=== PATIENT | female | born 1990 | race Caucasian/White ===

== ENCOUNTER → 2016-09-13 | Outpatient (CLI) | payer OTHER ==
--- NOTE | 2016-09-13 13:22 | US ---
EXAMINATION TYPE: US OB <= 14 wk fetus DATE OF EXAM: 09/13/2016 11:33 AM COMPARISON: 08/11/2016 CLINICAL HISTORY: 26-year-old female confirm dates, 3, para 2 Beta HcG (if available): Not available at time of exam EXAM PERFORMED: Transabdominal (TA) FINDINGS: EXAM MEASUREMENTS: GESTATIONAL AGE / DATING Physician Established: Not established yet Dates by LMP: Patient unsure Dates by First Scan: No IUP seen Dates by Current Scan: (10 weeks/1 days) EDC: 04/10/2017 MATERNAL ANATOMY Uterus: 10.5 x 6.1 x 7.6cm Right Ovary: 3.1 x 1.8 x 1.7cm Left Ovary: 1.8 x 1.7 x 2.0cm Post CDS / Adnexa: Within normal limits Presence of free fluid: no Presence of corpus luteal cyst: not seen at this time Presence of subchorionic bleed: no GESTATION / SURVEY CRL: 3.3cm (10 weeks/1 days) Yolk Sac (normal less than 6mm): 4.5mm Heart Rate: 162 bpm Rhythm: Normal IUP: Viable IUP Nuchal Translucency 10-14wks (normal less than 3mm): 2.0mm IMPRESSION: 1. Single live intrauterine with gestational age of 10 weeks 1 day by crown-rump length. 2. Complete survey recommended at 18-20 weeks.
== END | disposition home or self-care (01) ==
LOC: RADUSWWP 11:08
PROVIDERS: ATTEND Obstetrics & Gynecology
DX: Z36 Encounter for antenatal screening of mother (principal); Z3A.10 10 weeks gestation of pregnancy
CPT/HCPCS: 76801; 76813

== ENCOUNTER → 2016-09-26 | Outpatient (CLI) | payer OTHER ==
[2016-09-26 15:23] LABS: Glucose 85 mg/dL (74-99); Non-African American GFR(MDRD) >60 (>60 ml/min/1.73 sqM)
[2016-09-26 15:26] LABS: CH 31.7; CHCM 33.7; HCT 36.5 % (34.0-46.0); HDW 2.38; HGB 12.4 gm/dL (11.4-16.0); MCHC 33.9 g/dL (31.0-37.0); MCV 94.5 fL (80.0-100.0); Mean Platelet Volume 10.1; RBC 3.87 m/uL (3.80-5.40); RDW 12.6 % (11.5-15.5); WBC 8.5 k/uL (3.8-10.6)
[2016-09-26 15:54] LABS: Hepatitis B Surface Ag Index 0.05
[2016-09-27 04:41] LABS: Toxoplasma Antibody (IgG) <3.0 IU/mL (<7.2)
[2016-09-27 07:22] LABS: HIV-1/HIV-2 Ab Screen NONREAC (NON REAC)
== END | disposition home or self-care (01) ==
LOC: LABWHC1 14:58
PROVIDERS: ATTEND Obstetrics & Gynecology
DX: Z34.81 Encounter for supervision of other normal pregnancy, first trimester (principal); Z3A.00 Weeks of gestation of pregnancy not specified
CPT/HCPCS: 36415; 82565; 82947; 85027; 86762; 86777; 86778; 86780; 86850; 86900; 86901; 87340; 87389

== ENCOUNTER 2016-10-31 17:21 | Emergency (ER) | payer OTHER ==
[2016-10-31 18:11] VITALS: RESP 18
--- NOTE | 2016-10-31 19:05 | ED ---
General Adult HPI - General Chief complaint: Abdominal Pain Stated complaint: , cramping IHS Time Seen by Provider: 10/31/16 18:40 Source: patient, RN notes reviewed Mode of arrival: ambulatory Limitations: no limitations - History of Present Illness Initial comments: This is a 26 her old female who presents with intermittent abdominal pain after lifting a patient yesterday at work. 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 Patient states the pain has gotten worse since yesterday and is now to the epigastric area. Patient states nothing makes pain worse or better. Patient states she has some mild cramping mostly in her back. Patient denies any vaginal bleeding or increased vaginal discharge. Patient denies any fever/ chills, dysuria, hematuria or frequency of urination. Patient states she is 16 weeks and she is a . Patient denies any recent fever, chills, shortness breath, chest pain, nausea/vomiting/diarrhea, numbness, tingling, hematuria, headache, or visual changes, or any other complaints. - Related Data Home Medications Medication Instructions Recorded Confirmed Pnv with Ca,No.72/Iron/FA 1 tab PO DAILY 10/31/16 10/31/16 [ Plus Tablet] Allergies Allergy/AdvReac Type Severity Reaction Status Date / Time No Known Allergies Allergy Verified 10/31/16 18:33 Review of Systems ROS Statement: Those systems with pertinent positive or pertinent negative responses have been documented in the HPI. ROS Other: All systems not noted in ROS Statement are negative. Past Medical History Past Medical History: No Reported History History of Any Multi-Drug Resistant Organisms: None Reported Additional Past Surgical History / Comment(s): Past Psychological History: No Psychological Hx Reported Smoking Status: Current every day smoker Past Alcohol Use History: None Reported Past Drug Use History: None Reported General Exam - General Exam Comments Initial Comments: General: The patient is awake and alert, in no distress, and does not appear acutely ill. Eye: Pupils are equal, round and reactive to light, extra-ocular movements are intact. No nystagmus. There is normal conjunctiva bilaterally. No signs of icterus. Ears: TMs pink and pearly with intact cone of light bilaterally. Normal external ear canals Nose: Nasal turbinates pink and moist Mouth and throat: There are moist mucous membranes and no oral lesions. Neck: The neck is supple, there is no tenderness or JVD. Cardiovascular: There is a regular rate and rhythm. No murmur, rub or gallop is appreciated. Respiratory: Lungs are clear to auscultation, respirations are non-labored, breath sounds are equal. No wheezes, stridor, rales, or rhonchi. Gastrointestinal: There is mild tenderness to palpation of the right lower quadrant. On bimanual exam or adnexal tenderness present, no right adnexal tenderness. No cervical motion tenderness. Patient has no epigastric tenderness. No pain with engagement of abdominal muscles. Soft, non-distended abdomen without masses or organomegaly noted. There is no rebound or guarding present. No CVA tenderness. Bowel sounds are unremarkable. Musculoskeletal: Normal ROM, no tenderness. Strength 5/5. Sensation intact. Radial Pulses equal bilaterally 2+. Neurological: A&O x 3. CN II-XII intact, There are no obvious motor or sensory deficits. Coordination appears grossly intact. Speech is normal. Skin: Skin is warm and dry and no rashes or lesions are noted. Psychiatric: Cooperative, appropriate mood & affect, normal judgment. Limitations: no limitations External exam: Present: normal external exam. Absent: erythema, swelling, lesions Speculum exam: Present: vaginal discharge (whitish discharge present, no odor). Absent: erythema, vaginal bleeding By manual exam: Present: adnexal tenderness (left adnexnal tenderness present). Absent: cervical motion tenderness Course Vital Signs 10/31/16 10/31/16 18:09 20:04 Temperature 97.5 F L 97.2 F L Pulse Rate 90 75 Respiratory 18 18 Rate Blood Pressure 121/58 101/59 O2 Sat by Pulse 100 98 Oximetry Medical Decision Making - Medical Decision Making This is a 26-year-old female who presents with abdominal pain after lifting a patient at work last night. Patient is 16 weeks . On physical exam There is mild tenderness to palpation of the right lower quadrant. On bimanual exam or adnexal tenderness present, no right adnexal tenderness. No cervical motion tenderness. Patient has no epigastric tenderness. No pain with engagement of abdominal muscles. Soft, non-distended abdomen without masses or organomegaly noted. There is no rebound or guarding present. No CVA tenderness. Bowel sounds are unremarkable. Patient had increased vaginal discharge and culture was obtained. 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 Patient is given Tylenol in the EC and reports improvement in symptoms. An ultrasound was done: Viable IUP. There is satisfactory growth compared to previous exam of 09/13/2016. I see no complicating process. Report read by Dr. Zamarripa. Discussed results with patient. Discussed Tylenol and heating pads for pain. Discussed avoidance of activities that causes increased pain. Discussed that is likely a muscular pain. Discussed that patient should follow-up with her CNC OPERATOR PROGRAMMER tomorrow. I discussed return parameters.Discussed that patient should follow up with PCP in one to 2 days or return to the EC for any worsening symptoms or for any further concerns. Patient was receptive to this plan and patient will be discharged home. I discussed this case with attending physician Dr. Richter who agrees the plan as stated above. - Lab Data Lab Results 10/31/16 Range/Units 19:00 Urine Color Light Yellow Urine Appearance Cloudy H (Clear) Urine pH 6.5 (5.0-8.0) Ur Specific [place] 1.010 (1.001-1.035) Urine Protein Negative (Negative) Urine Glucose (UA) Negative (Negative) Urine Ketones Negative (Negative) Urine Blood Negative (Negative) Urine Nitrate Negative (Negative) Urine Bilirubin Negative (Negative) Urine Urobilinogen <2.0 (<2.0) mg/dL Ur Leukocyte Esterase Negative (Negative) Urine RBC 1 (0-5) /hpf Ur Squamous Epith Cells 1 (0-4) /hpf Amorphous Sediment Rare H (None) /hpf Disposition Clinical Impression: Normal IUP (intrauterine ) on ultrasound, Muscle strain Disposition: HOME SELF-CARE Condition: Good Instructions: Muscle Strain (ED) Additional Instructions: Please use Tylenol for pain. May use heating pads to the area. Please follow- up with your CNC OPERATOR PROGRAMMER tomorrow. Please use medication as discussed. Please follow -up with family doctor in the next 2 days of symptoms have not improved. Please return to emergency room if the symptoms increase or worsen or for any other concerns. Referrals: Magda Osborne DO [Primary Care Provider] - 1-2 days Time of Disposition: 20:28
[2016-10-31] MEDS ORDERED: ACETAMINOPHEN TAB 500 MG TAB PO STA (19:15)
[2016-10-31 19:41] LABS: Amorphous Sediment,Urine Rare /hpf; Appearance,Urine Cloudy (Clear); Bilirubin,Urine Negative (Negative); Glucose,Urine (UA) Negative (Negative); Ketones,Urine Negative (Negative); Leukocyte Esterase,Urine Negative (Negative); Nitrite,Urine Negative (Negative); PH, Urine 6.5 (5.0-8.0); Particle Count 8159; Protein,Urine Negative (Negative); RBC,Urine 1 /hpf (0-5); Squamous Epithelial Cell,Urine 1 /hpf (0-4); UA Billing (MACRO vs. MICRO) MICRO; Urobilinogen,Urine <2.0 mg/dL (<2.0)
--- NOTE | 2016-10-31 20:03 | US ---
EXAMINATION TYPE: US OB >= 14 wk fetus DATE OF EXAM: 10/31/2016 7:52 PM COMPARISON: Prior in PACS CLINICAL HISTORY: Cramping TECHNIQUE: Transabdominal (TA) GESTATIONAL AGE / DATING Physician Established: (16 weeks/4 days) EDC: 04/13/2017 Dates by LMP: (16 weeks/4 days) EDC: 04/13/2017 Dates by First Scan: (16 weeks/4 days) EDC: 04/13/2017 Dates by Current Scan: (17 weeks/1 days) EDC: 04/09/2017 SURVEY IUP: Single PLACENTA: Anterior with probable posterior succenturiate lobe PREVIA: No Previa SERVANDO: 12.7 cm Normal CERVICAL LENGTH (transabdominal: norm > 3.0cm): 3.4 cm CERVICAL LENGTH (transvaginal: norm> 2.5cm): cm (Supplemental transvaginal imaging performed to verify cervical length.) BIOMETRY PRESENTATION: Variable LIE: Longitudinal BPD: 3.6 cm 17 weeks / 1 days HC: 13.8 cm 17 weeks / 2 days AC: 11.2 cm 17 weeks / 0 days FL: 2.3 cm 17 weeks / 0 days ESTIMATED WEIGHT IN GRAMS: 179.3 grams ESTIMATED WEIGHT IN LBS/OZS: 0 lbs. 6 oz. WEIGHT PERCENTAGE BASED ON ESTABLISHED DATES: 74.9% HC/AC: 1.24 Normal FL/AC: 20.8 Normal HEART RATE: 142 bpm RHYTHM: Normal MATERNAL WALL MEASUREMENT: cm from skin to anterior uterine wall (if exam limited due to body habitus ). TECHNOLOGIST IMPRESSION: Viable IUP, measurements congruent with dates IMPRESSION: There is satisfactory growth compared to previous exam of 09/13/2016. I see no complicating process.
[2016-10-31 20:06] VITALS: BP 101/59; PULSE 75; TEMP 97.2
== END 2016-10-31 20:50 | disposition home or self-care (01) ==
LOC: EC 17:21
DX: O26.892 Other specified pregnancy related conditions, second trimester (principal); O99.332 Smoking (tobacco) complicating pregnancy, second trimester; S39.011A Strain of muscle, fascia and tendon of abdomen, initial encounter; Z3A.16 16 weeks gestation of pregnancy; X50.0XXA Overexertion from strenuous movement or load, initial encounter; Y93.F2 Activity, caregiving, lifting; Y92.9 Unspecified place or not applicable; Y99.0 Civilian activity done for income or pay
CPT/HCPCS: 76805; 81001; 87070; 87086; 87205; 99284

== ENCOUNTER → 2016-11-08 | Outpatient (CLI) | payer OTHER | END | disposition home or self-care (01) | LOC: RADUSWWP 14:59 | PROVIDERS: ATTEND Obstetrics & Gynecology | DX: Z53.9 Procedure and treatment not carried out, unspecified reason (principal) ==

== ENCOUNTER → 2016-12-04 | Outpatient (CLI) | payer OTHER ==
--- NOTE | 2016-11-13 16:12 | US ---
EXAMINATION TYPE: US OB anatomy transabd DATE OF EXAM: 11/13/2016 2:46 PM COMPARISON: NONE HISTORY: 26-year-old female large for dates, survey. TECHNIQUE: Transabdominal scanning. FINDINGS: EXAM MEASUREMENTS: GESTATIONAL AGE / DATING Physician Established: (18 weeks/ 3 days) EDC: 04/13/17 Dates by LMP: unknown Dates by First Scan: (18 weeks/0 days) EDC: 04/10/17 Dates by Current Scan for: (18 weeks/4 days) EDC: 04/12/17 SURVEY IUP: Single PLACENTA: Anterior PREVIA: No previa SERVANDO: 12.8 cm CERVICAL LENGTH (transabdominal: norm > 3.0cm): 3.5 cm BIOMETRY PRESENTATION: Breech LIE: Transverse lie with head maternal R BPD: 4.1 cm 18 weeks / 4 days HC: 15.5 cm 18 weeks / 3 days AC: 13.8 cm 19 weeks / 2 days FL: 2.8 cm 18 weeks / 5 days ESTIMATED WEIGHT IN GRAMS: 264 grams ESTIMATED WEIGHT IN LBS/OZS: 0 lbs. 9 oz. WEIGHT PERCENTAGE BASED ON ESTABLISHED DATE: 75 % HC/AC: 1.1 FL/AC: 20.5 HEART RATE: 161 bpm RHYTHM: Normal ANATOMY SEEN (within normal limits): Lateral Vent (< 1 cm) 7.6 mm Cisterna Magna (< 1.1 cm) 4 mm Nuchal Fold (< 0.6 cm) 3.6 mm Cerebellum (varies with age) Choroid Plexus (bilateral) Midline Falx Cavus Septi Pellucidi Stomach Outflow tracts: LVOT Nose / Lips Diaphragm Kidneys (bilateral) Bladder Cord Insert Three Vessel Cord Arms (bilateral) Legs (bilateral) ANATOMY NOT SEEN or SUBOPTIMALLY VISUALIZED: due to position Four Chamber Heart Outflow tracts: RVOT Situs Longitudinal Spine Transverse Spine TECHNOLOGIST IMPRESSION: Anatomy as seen as above, patient scheduled for callback for spine. IMPRESSION: 1. Single live intrauterine with established gestational age of 18 weeks 3 days. Current ul trasound biometry is concordant (18 weeks 4 days) placing the child at the 75th percentile for weight . 2. A number structures on the survey were suboptimally visualized (four-chamber heart, RVOT, si tus, spine) and the patient is scheduled for a rescan for missed anatomy. The remaining structures ap pear normal.
--- NOTE | 2016-12-04 22:31 | US ---
EXAMINATION TYPE: US OB Call Back DATE OF EXAM: 12/04/2016 3:43 PM COMPARISON: EXAMINATION TYPE: US OB Call Back DATE OF EXAM: 12/04/2016 3:43 PM COMPARISON: NONE CLINICAL HISTORY: 26-year-old female [id number] LARGE FOR DATES 2ND TRIMESTER. Rescan of missed anatomy . TECHNIQUE: Transabdominal scanning. FINDINGS: GESTATIONAL AGE / DATING Dates by Initial Survey Scan: (18 weeks/ 4 days) EDC: 04/12/17 HEART RATE: 163 bpm RHYTHM: Normal ANATOMY SEEN (second anatomic survey look): Four Chamber Heart: Situs Longitudinal Spine: Transverse Spine: ANATOMY SUBOPTIMALLY VISUALIZED: Outflow tracts:? RVOT (limited assessment on the provided images. The machinist helper notes normal appear ance during real-time scanning). IMPRESSION: The RVOT remains suboptimally visualized on the provided images. However, the machinist helper notes a nor mal appearance during real-time scanning. The survey is otherwise complete and the remaining an atomy appears normal.
== END | disposition home or self-care (01) ==
LOC: RADUSWWP 11-13 13:39
PROVIDERS: ATTEND Obstetrics & Gynecology
DX: O36.62X0 Maternal care for excessive fetal growth, second trimester, not applicable or unspecified (principal); Z3A.18 18 weeks gestation of pregnancy
CPT/HCPCS: 76811

== ENCOUNTER → 2016-12-24 | Outpatient (CLI) | payer OTHER ==
[2016-12-24 15:04] LABS: CH 31.6; CHCM 33.1; HCT 36.2 % (34.0-46.0); HDW 2.37; HGB 12.1 gm/dL (11.4-16.0); MCH 32.2 pg (25.0-35.0); MCHC 33.5 g/dL (31.0-37.0); MCV 96.2 fL (80.0-100.0); Mean Platelet Volume 9.9; RBC 3.76 m/uL (3.80-5.40); WBC 13.8 k/uL (3.8-10.6)
== END | disposition home or self-care (01) ==
LOC: LABWHC1 13:44
PROVIDERS: ATTEND Obstetrics & Gynecology
DX: Z34.82 Encounter for supervision of other normal pregnancy, second trimester (principal); Z3A.00 Weeks of gestation of pregnancy not specified
CPT/HCPCS: 36415; 82950; 85027

== ENCOUNTER 2017-02-22 09:34 | Outpatient (CLI) | payer OTHER ==
[2017-02-22 10:18] VITALS: PULSE 105; RESP 18; TEMP 96.9
[2017-02-22 10:49] LABS: Amorphous Sediment,Urine Occasional /hpf; Appearance,Urine Cloudy (Clear); Bacteria,Urine Occasional /hpf; Bilirubin,Urine Negative (Negative); Calcium Oxalate Crystals,Urine Moderate /hpf; Glucose,Urine (UA) Negative (Negative); Ketones,Urine Negative (Negative); Leukocyte Esterase,Urine Large (Negative); Mucus,Urine Rare /hpf; Nitrite,Urine Negative (Negative); PH, Urine 6.5 (5.0-8.0); Particle Count 16458; Protein,Urine 1+ (Negative); Specific Gravity,Urine 1.018 (1.001-1.035); Squamous Epithelial Cell,Urine 24 /hpf (0-4); UA Billing (MACRO vs. MICRO) MICRO; Urobilinogen,Urine <2.0 mg/dL (<2.0); WBC,Urine 6 /hpf (0-5)
[2017-02-22 11:15] LABS: Basophils % (A) 0 %; CH 32.5; CHCM 34.6; Eosinophils # (A) 0.1 k/uL (0-0.7); Eosinophils % (A) 1 %; HCT 33.7 % (34.0-46.0); HDW 2.61; HGB 11.4 gm/dL (11.4-16.0); Large Platelets Flag Moderate; Luc # (Auto) 0.24; Luc % (Auto) 2; Lymphocytes # (A) 1.5 k/uL (1.0-4.8); Lymphocytes % (A) 11 %; MCH 31.8 pg (25.0-35.0); MCHC 33.7 g/dL (31.0-37.0); MCV 94.4 fL (80.0-100.0); Mean Platelet Volume 11.4; Monocytes # (A) 0.5 k/uL (0-1.0); Monocytes % (A) 4 %; Neutrophils # (A) 11.1 k/uL (1.3-7.7); Neutrophils % (A) 82 %; RBC 3.57 m/uL (3.80-5.40); RDW 13.2 % (11.5-15.5); WBC 13.5 k/uL (3.8-10.6); WBC (Perox) 13.35
[2017-02-22 11:26] LABS: ALT 26 U/L (9-52); AST 12 U/L (14-36); LDH 315 U/L (313-618); Non-African American GFR(MDRD) >60 (>60 ml/min/1.73 sqM); Uric Acid 4.3 mg/dL (3.7-7.4)
[2017-02-22 11:35] LABS: Large Platelets Present; Manual Review Performed; RBC Morphology Normal
[2017-02-22 13:05] VITALS: BP 106/60
== END 2017-02-22 12:15 | disposition home or self-care (01) ==
LOC: FBPOP 09:34
PROVIDERS: ATTEND Obstetrics & Gynecology
DX: O99.113 Other diseases of the blood and blood-forming organs and certain disorders involving the immune mechanism complicating pregnancy, third trimester (principal); D69.6 Thrombocytopenia, unspecified; R42 Dizziness and giddiness; R63.4 Abnormal weight loss; Z3A.32 32 weeks gestation of pregnancy
CPT/HCPCS: 59025; 82565; 83615; 84450; 84460; 84550; 85025; 81001; G0463; 99215

== ENCOUNTER 2017-03-01 12:08 | Outpatient (CLI) | payer OTHER ==
[2017-03-01 12:17] VITALS: BP 113/69; PULSE 106; RESP 18; TEMP 96.1
== END 2017-03-01 12:55 | disposition home or self-care (01) ==
LOC: FBPOP 12:08
PROVIDERS: ATTEND Obstetrics & Gynecology
DX: O47.9 False labor, unspecified (principal); Z3A.33 33 weeks gestation of pregnancy
CPT/HCPCS: 59025; 84112; G0463; 99213

== ENCOUNTER 2017-03-11 11:03 | Outpatient (CLI) | payer OTHER ==
[2017-03-11 12:52] VITALS: BP 122/70; PULSE 112; RESP 16; TEMP 96.9
--- NOTE | 2017-03-12 08:30 | P.MSEPDOC ---
Presenting Problems - Arrival Data Date of Arrival on Unit: 03/11/17 Time of Arrival on Unit: 11:00 Mode of Transport: Ambulatory - Complaint OB-Reason for Admission/Chief Complaint: Observation/Evaluation Comment: pt arrived c/o bright red bleeding yesterday and brownish discharge today when she wipes. denies any contractions or abd discomfort Medical History - Information : 4 Para: 2 Term: 2 : 0 Abortions: Spontaneous or Elective: 1 Number of Living Children: 2 - Gestational Age Expected Date of Delivery: 04/13/17 Gestational Age by CHIQUI (wks/days): 35 Weeks and 3 Days Review of Systems - Review of Systems Constitutional: No problems Breast: No problems ENT: No problems Cardiovascular: No problems Respiratory: No problems Gastrointestinal: No problems Genitourinary: No problems Musculoskeletal: No problems Neurological: No problems Skin: No problems Vital Signs - Temperature Temperature: 96.9 F Temperature Source: Temporal Artery Scan - Pulse Right Brachial Pulse Rate: 112 Pulse Assessment Method: Automatic Cuff - Respirations Respiratory Rate: 16 Oxygen Delivery Method: Room Air - Blood Pressure Right Arm Blood Pressure: 122/70 Blood Pressure Mean: 87 Blood Pressure Source: Automatic Cuff Medical Screen Scoring (Pre) - Cervical Exam Dilation: 0 cm = 0 Membranes: Intact - Uterine Contractions Frequency: N/A Duration: N/A Intensity: N/A - Maternal Vital Signs Maternal Temperature: N/A Maternal Blood Pressure: N/A Signs of Preeclampsia: N/A Maternal Respirations: N/A - Maternal Trauma Maternal Trauma: N/A - Assessment Baseline FHR: 130 Heart Rate - NICHD Category: Category I (Normal) = 0 NST: Reactive Position: N/A Station: N/A - Total Score Total Score (Pre): 0 - Level of Risk Level of Risk: Low (0-5) Physician Notification (Pre) - Physician Notified Physician Notified Date: 03/11/17 Physician Notified Time: 11:15 Physician/Practitioner Notifed:: DR SARKAR Spoke With: DR SARKAR New Order Received: Yes - Notification Comment Comment: MAY DISCHARGE TO HOME AND KEEP DOCTOR APPOINTMENT WITH DR BAR TOMORROW Disposition - Disposition OB Disposition: Discharge to home Discharge Date: 03/11/17 Discharge Time: 12:40 I agree with the RN Medical Screening Exam: Yes Risk & Benefit of care provided described in d/c instruction: Yes Diagnosis: 35 WEEKS GESTATION OF
== END 2017-03-11 12:40 | disposition home or self-care (01) ==
LOC: FBPOP 11:03
PROVIDERS: ATTEND Obstetrics & Gynecology
DX: Z34.93 Encounter for supervision of normal pregnancy, unspecified, third trimester (principal); Z3A.35 35 weeks gestation of pregnancy
CPT/HCPCS: 59025; G0463; 99213

== ENCOUNTER 2017-03-24 23:24 | Outpatient (CLI) | payer OTHER ==
[2017-03-25 00:58] VITALS: BP 117/73; PULSE 94; RESP 18; TEMP 96.8
--- NOTE | 2017-03-27 07:30 | P.MSEPDOC ---
Presenting Problems - Arrival Data Date of Arrival on Unit: 03/25/17 Time of Arrival on Unit: 23:24 Mode of Transport: Ambulatory - Complaint OB-Reason for Admission/Chief Complaint: Possible Onset of Labor Medical History - Information : 4 Para: 2 Term: 2 : 0 Abortions: Spontaneous or Elective: 1 Number of Living Children: 2 - Gestational Age Expected Date of Delivery: 04/13/17 Gestational Age by CHIQUI (wks/days): 37 Weeks and 4 Days - History Complications: Smoker Review of Systems - Review of Systems Constitutional: No problems Breast: No problems ENT: No problems Cardiovascular: No problems Respiratory: No problems Gastrointestinal: No problems Genitourinary: No problems Musculoskeletal: No problems Neurological: No problems Skin: No problems Vital Signs - Temperature Temperature: 96.8 F Temperature Source: Temporal Artery Scan - Pulse Right Brachial Pulse Rate: 94 Pulse Assessment Method: Automatic Cuff - Respirations Respiratory Rate: 18 Oxygen Delivery Method: Room Air - Blood Pressure Right Arm Blood Pressure: 117/73 Blood Pressure Mean: 87 Blood Pressure Source: Automatic Cuff Medical Screen Scoring (Pre) - Cervical Exam Dilation: 1-3 cm = 1 Effacement: More than 50% = 2 Membranes: Intact - Uterine Contractions Frequency: > or = 36 weeks =2 Duration: > 40 seconds = 2 - Maternal Vital Signs Maternal Temperature: N/A Maternal Blood Pressure: N/A Signs of Preeclampsia: N/A Maternal Respirations: N/A - Maternal Trauma Maternal Trauma: N/A - Assessment Baseline FHR: 135 Heart Rate - NICHD Category: Category I (Normal) = 0 NST: Reactive Position: N/A Station: N/A - Total Score Total Score (Pre): 7 - Level of Risk Level of Risk: Medium (6-9) Medical Screen Scoring (Post) - Cervical Exam Dilation: 1-3 cm = 1 Effacement: More than 50% = 2 Membranes: Intact - Uterine Contractions Frequency: > or = 36 weeks =2 Duration: > 40 seconds = 2 Intensity: N/A - Maternal Vital Signs Maternal Temperature: N/A Maternal Blood Pressure: N/A Signs of Preeclampsia: N/A Maternal Respirations: N/A - Maternal Trauma Maternal Trauma: N/A - Assessment Heart Rate: 135 Heart Rate - NICHD Category: Category I (Normal) = 0 NST: Reactive Position: N/A - Total Score Total Score (Post): 7 - Post Treatment Level of Risk Post Treatment Level of Risk: Medium (6-9) Physician Notification (Post) - Physician Notified Physician Notified Date: 03/25/17 Physician Notified Time: 01:00 Physician/Practitioner Notified:: Dr. Wilkins Spoke With: Dr. Wilkins New Order Received: Yes - Notification Comment Comment: may keep for another hour if pt desires and recheck cervical exam or discharge pt home and instruct to increase fluids and return if contractions worsen Disposition - Disposition OB Disposition: Triage, Discharge to home, Written follow up instructions reviewed Discharge Date: 03/25/17 Discharge Time: 01:00 I agree with the RN Medical Screening Exam: Yes Risk & Benefit of care provided described in d/c instruction: Yes Diagnosis: FALSE LABOR AT OR AFTER 37 COMPLETED WEEKS OF GESTATION
== END 2017-03-25 01:00 | disposition home or self-care (01) ==
LOC: FBPOP 23:24
PROVIDERS: ATTEND Obstetrics & Gynecology
DX: O47.1 False labor at or after 37 completed weeks of gestation (principal); Z3A.37 37 weeks gestation of pregnancy
CPT/HCPCS: 59025; G0463; 99213

== ENCOUNTER 2017-04-08 05:53 | Inpatient (IN) | payer OTHER ==
--- NOTE | 2017-04-07 14:31 | P.HPOB ---
History of Present Illness H&P Date: 04/07/17 Chief Complaint: Induction of labor This is a 27-year-old female 4 para 2 with an estimated date of confinement of 04/13/2017, estimated gestational age of 39-2/7 weeks, who presents to labor and delivery for induction of labor. She has been feeling irregular contractions. She denies any rupture of membranes. She has been feeling good movement. labs: HIV-nonreactive Toxoplasma-negative Random glucose-85 Hepatitis B surface antigen-negative Hemoglobin-12.4 Syphilis antibody-negative Rubella-immune Blood type-O+ Antibody screen-negative One hour Glucola-117 Group B streptococcus-positive Obstetrical history: . History of 1 miscarriage and 2 vaginal deliveries at term. Her first vaginal delivery was complicated by placental abruption. Gynecologic history: No history of sexual transmitted diseases. 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 Review of Systems Constitutional: Denies chills, Denies fever Ears, nose, mouth and throat: Denies headache, Denies sore throat Cardiovascular: Denies chest pain, Denies shortness of breath Respiratory: Denies cough Gastrointestinal: Reports abdominal pain (Irregular contractions) Genitourinary: Reports pelvic pain, Reports Musculoskeletal: Reports low back pain Neurological: Denies numbness, Denies weakness Past Medical History Past Medical History: No Reported History History of Any Multi-Drug Resistant Organisms: None Reported Additional Past Surgical History / Comment(s): Past Psychological History: No Psychological Hx Reported Smoking Status: Never smoker Past Alcohol Use History: None Reported Past Drug Use History: None Reported - Past Family History Mother Family Medical History: Diabetes Mellitus Medications and Allergies Home Medications Medication Instructions Recorded Confirmed Type Pnv,Calcium 72/Iron/Folic Acid 1 tab PO DAILY 10/31/16 03/24/17 History [ Plus Tablet] Allergies Allergy/AdvReac Type Severity Reaction Status Date / Time No Known Allergies Allergy Verified 03/24/17 23:36 Exam Osteopathic Statement: *. No significant issues noted on an osteopathic structural exam other than those noted in the History and Physical/Consult.
[2017-04-08] MEDS ORDERED: LIDOCAINE 1% (PF) 10 MG/ML (30 ML SDV) SQ PRN (06:08)
[2017-04-08] MEDS ORDERED: TERBUTALINE 1 MG/ML VIAL SQ PRN (06:08)
[2017-04-08] MEDS ORDERED: OXYTOCIN 20 UNITS/1000 ML NS 1,000 ML IV SCH ×2 (06:08→13:43)
[2017-04-08] MEDS ORDERED: OXYTOCIN 10 UNIT/ML 1 ML VIAL IM PRN (06:08)
[2017-04-08] MEDS ORDERED: CARBOPROST TROMETHAMINE 250 MCG/ML 1 ML AMP IM PRN (06:08)
[2017-04-08] MEDS ORDERED: AMPICILLIN 2,000 MG in SODIUM CHLORIDE 0.9% 100 ML IVPB STA (06:08)
[2017-04-08] MEDS ORDERED: METHYLERGONOVINE 0.2 MG/ML 1 ML AMP IM PRN (06:08)
[2017-04-08] MEDS ORDERED: LIDOCAINE 1% 20 ML VIAL (10MG/ML) FOR IV START INTRADERMA PRN (06:08)
[2017-04-08 06:17] VITALS: BMI 32.5
[2017-04-08] MEDS: LACTATED RINGERS 1,000 ML IV SCH ×2 (06:25→08:42)
[2017-04-08 06:37] LABS: Basophils % (A) 0 %; CH 32.7; CHCM 33.8; Eosinophils # (A) 0.1 k/uL (0-0.7); Eosinophils % (A) 1 %; HCT 36.7 % (34.0-46.0); HDW 2.75; HGB 12.1 gm/dL (11.4-16.0); Large Platelets Flag Marked; Luc # (Auto) 0.27; Luc % (Auto) 2; Lymphocytes # (A) 1.4 k/uL (1.0-4.8); Lymphocytes % (A) 10 %; MCH 32.1 pg (25.0-35.0); MCV 97.3 fL (80.0-100.0); Mean Platelet Volume 12.7; Monocytes # (A) 0.5 k/uL (0-1.0); Monocytes % (A) 4 %; Neutrophils # (A) 11.2 k/uL (1.3-7.7); Neutrophils % (A) 83 %; RBC 3.77 m/uL (3.80-5.40); RDW 14.1 % (11.5-15.5); WBC 13.4 k/uL (3.8-10.6); WBC (Perox) 14.74
[2017-04-08] MEDS ORDERED: SODIUM CHLORIDE 0.9% 100 ML BAG ONE (08:45)
[2017-04-08] MEDS ORDERED: fentaNYL (PF) 50 MCG/ML 5 ML AMP ONE (08:45)
[2017-04-08] MEDS ORDERED: BUPIVACAINE (PF) 0.25% 30 ML VIAL ONE (08:45)
[2017-04-08] MEDS ORDERED: BUPIVACAINE (PF) 0.25% 25 ML, fentaNYL (PF) 200 MCG in SODIUM CHLORIDE 0.9% 71 ML EPIDURAL ONE (09:09)
[2017-04-08] MEDS ORDERED: AMPICILLIN 1,000 MG in SODIUM CHLORIDE 0.9% 50 ML IVPB SCH (10:30)
--- NOTE | 2017-04-08 13:34 | P.PROBDLV ---
Vaginal Delivery Note - . Vaginal Delivery Note: The patient reached complete dilation after oxytocin induction of labor and artificial rupture of membranes with clear fluid noted. She did receive epidural anesthesia. Once she reached approximately 9-1/2 cm, she was having issues with nausea and vomiting. She was instructed to give one push during a contraction and the remainder the cervix easily went away. She pushed for a couple further pushes and infant's head came to a crown. Perineum was anesthetized with 1% lidocaine and then a midline episiotomy was cut. With one further push, the remainder the 's head delivered across the perineum followed by the anterior shoulder. Nuchal cord times one was doubly clamped and cut and reduced around the 's head. With one remaining push, the remainder the easily delivered and was placed on mother's abdomen. Infant was then taken to warmer for evaluation. A viable female infant was noted with scores of 8 at 1 minute and 9 at 5 minutes and weight of 7 pounds 3.9 ounces. Her placenta delivered shortly thereafter, intact, with a three-vessel cord. Uterus contracted well after oxytocin was given and uterine massage was carried out. Inspection of the perineum revealed a midline episiotomy with no further extension. This area was anesthetized with 1% lidocaine and then sutured with 3-0 and 2-0 Vicryl suture in the usual multi- layer fashion. Estimated blood loss is approximately 150 mL's. Both mother and infant are in stable condition.
[2017-04-08] MEDS ORDERED: LANOLIN CREAM 5 GM TUBE TOPICAL PRN (13:43)
[2017-04-08] MEDS ORDERED: BENZOCAINE/MENTHOL SPRAY 1 GM/SPRAY AEROSOL TOPICAL PRN (13:43)
[2017-04-08] MEDS ORDERED: HYDROCORTISONE 2.5% RECTAL CREAM 30 GM TUBE RECTAL PRN (13:43)
[2017-04-08] MEDS ORDERED: Acetaminophen-Codeine 300-30mg TAB PO PRN ×2 (13:43)
[2017-04-08] MEDS ORDERED: diphenhydrAMINE 50 MG/ML 1 ML VIAL IVP PRN ×2 (13:43)
[2017-04-08] MEDS ORDERED: diphenhydrAMINE 50 MG CAP PO PRN (13:43)
[2017-04-08] MEDS ORDERED: SIMETHICONE 80 MG CHEWABLE PO PRN (13:43)
[2017-04-08] MEDS ORDERED: WITCH HAZEL 1 EACH MED..PAD TOPICAL PRN (13:43)
[2017-04-08] MEDS ORDERED: ACETAMINOPHEN TAB 325 MG TAB PO PRN (13:43)
[2017-04-08] MEDS ORDERED: diphenhydrAMINE 25 MG CAP PO PRN (13:43)
[2017-04-08] MEDS ORDERED: ZOLPIDEM 5 MG TAB PO PRN (13:43)
[2017-04-08] MEDS: IBUPROFEN 600 MG TAB PO PRN (19:56)
[2017-04-08] MEDS: SENNOSIDES-DOCUSATE SODIUM 1 EACH TAB PO SCH (21:44)
[2017-04-09] MEDS: IBUPROFEN 600 MG TAB PO PRN ×2 (02:32→12:14)
[2017-04-09 08:09] VITALS: BP 132/79; PULSE 90; RESP 16; TEMP 98.4
[2017-04-09] MEDS: SENNOSIDES-DOCUSATE SODIUM 1 EACH TAB PO SCH (08:14)
--- NOTE | 2017-04-09 08:55 | P.DS ---
Providers Date of admission: 04/08/17 05:53 Expected date of discharge: 04/09/17 Attending physician: Magda Osborne Primary care physician: Stated None Hospital Course: This is a 27-year-old female 4 para 2 at 39-2/7 weeks who presented for induction of labor. She underwent oxytocin induction of labor and delivered vaginally a viable female infant on 04/08/2017 with scores of 8 at 1 minute and 9 at 5 minutes and infant weight of 7 lbs. 4 oz. She did receive several doses of antibiotic while in labor due to positive group B streptococcus. She did receive epidural anesthesia. Her course has been essentially uncomplicated other than she is having some coughing. She felt that she was getting a small cold before she went into the hospital but now just has a dry cough. Her vital signs are stable. Abdomen is soft with fundus firm and nontender. Extremities show negative Homans. Impression is status post vaginal delivery day #1. Plan is to discharge home today. Routine instructions are given. She will be given a prescription for ibuprofen. She is bottle feeding. She is advised to follow- up in the office in 6 weeks for check. She is advised to call the office if she has any further questions or concerns prior to her appointment time. Procedures: Oxytocin induction of labor Spontaneous vaginal delivery of a viable male infant on 04/08/2017 Patient Condition at Discharge: Stable Plan - Discharge Summary New Discharge Prescriptions: New Ibuprofen [Motrin] 600 mg PO Q6HR PRN #60 tab PRN Reason: Mild Pain Or Fever >= 100.5 Continue Pnv,Calcium 72/Iron/Folic Acid [ Plus Tablet] 1 tab PO DAILY Discharge Medication List Pnv,Calcium 72/Iron/Folic Acid [ Plus Tablet] 1 tab PO DAILY 10/31/16 [ History] Ibuprofen [Motrin] 600 mg PO Q6HR PRN #60 tab 04/09/17 [Rx] Follow up Appointment(s)/Referral(s): Magda Osborne DO [Doctor of Osteopathic Medicine] - 6 Weeks Activity/Diet/Wound Care/Special Instructions: Instructions 1. Do not begin any exercise program for 3 weeks. 2. Do not resume sexual relations for 3 weeks or longer if uncomfortable. 3. You may take tub baths or showers at any time. 4. You may use tampons if desired after 3 weeks. 5. Keep the area of episiotomy (stitches) clean and dry. 6. If you are not nursing, wear a good fitting, supportive bra during the day and limit fluid intake for at least 1 week to prevent breast engorgement. 7. Call the office, [phone], within the next week to make appointment for your 6 week checkup if it has not already been made. 8. Report any of the following occurrences to the doctor promptly: a. Heavy, excessive bleeding b. Chills, fever c. Burning or frequency of urination d. Pain or redness and breasts if nursing e. Increasing pain or swelling in episiotomy (stitches). In addition to the above instructions, the following additional should be followed: 1. No heavy lifting or straining (exercising) until after 6 week checkup. 2. Keep abdominal incision clean and dry: You may wear a dressing if more comfortable. 3. Make office appointment for 10 days after going home or as instructed by her doctor. Discharge Disposition: HOME SELF-CARE
[2017-04-09 09:35] LABS: Basophils % (A) 0 %; CH 31.6; CHCM 33.8; Eosinophils # (A) 0.1 k/uL (0-0.7); Eosinophils % (A) 1 %; HCT 32.6 % (34.0-46.0); HDW 2.72; HGB 11.2 gm/dL (11.4-16.0); Large Platelets Flag Moderate; Luc # (Auto) 0.29; Luc % (Auto) 3; Lymphocytes # (A) 1.7 k/uL (1.0-4.8); Lymphocytes % (A) 16 %; MCH 32.4 pg (25.0-35.0); MCHC 34.5 g/dL (31.0-37.0); Mean Platelet Volume 11.4; Monocytes # (A) 0.4 k/uL (0-1.0); Monocytes % (A) 4 %; Neutrophils # (A) 7.7 k/uL (1.3-7.7); Neutrophils % (A) 75 %; RBC 3.47 m/uL (3.80-5.40); RDW 13.3 % (11.5-15.5); WBC 10.2 k/uL (3.8-10.6); WBC (Perox) 10.64
[2017-04-09 13:31] LABS: Large Platelets Present; Manual Review Performed
== END 2017-04-09 14:58 | disposition home or self-care (01) | DRG 775 ==
LOC: 4FBP 05:53
PROVIDERS: ADMIT Obstetrics & Gynecology; ATTEND Obstetrics & Gynecology
PROC: 10E0XZZ Delivery of Products of Conception, External Approach (ICD-10-PCS; principal; 2017-04-08)
PROC: 10907ZC Drainage of Amniotic Fluid, Therapeutic from Products of Conception, Via Natural or Artificial Opening (ICD-10-PCS; principal; 2017-04-08)
PROC: 3E033VJ Introduction of Other Hormone into Peripheral Vein, Percutaneous Approach (ICD-10-PCS; principal; 2017-04-08)
PROC: 00HU33Z Insertion of Infusion Device into Spinal Canal, Percutaneous Approach (ICD-10-PCS; principal; 2017-04-08)
DX: O69.81X0 Labor and delivery complicated by cord around neck, without compression, not applicable or unspecified (principal); O99.824 Streptococcus B carrier state complicating childbirth; Z37.0 Single live birth; Z3A.39 39 weeks gestation of pregnancy
CPT/HCPCS: 85025; 88307

== ENCOUNTER → 2017-12-18 | Outpatient (CLI) | payer OTHER ==
--- NOTE | 2017-12-18 17:10 | US ---
EXAMINATION TYPE: Transabdominal AND TV , better viz of fetus DATE OF EXAM: 11/26/17 COMPARISON: NONE CLINICAL HISTORY: Z36 CONFIRM DATES. EXAM PERFORMED: Transvaginal (TV) and Transabdominal (TA) EXAM MEASUREMENTS: GESTATIONAL AGE / DATING Physician Established: unknown EDC: unknown Dates by LMP: LMP unknown EDC: unknown Dates by First Scan: No previous this is first scan EDC: unknown Dates by Current Scan for: iup (8 weeks/2 days) EDC: 07/28/2018 MATERNAL ANATOMY Uterus: 8.9 x 5.0 x 6.2 Right Ovary: cyst , .3 x 1.9 x 2.0 cm small echogenic area within 0.7 cm , no vascularity within area Left Ovary: wnl Post CDS / Adnexa: rt cyst Presence of free fluid: no Presence of corpus luteal cyst: cyst , .3 x 1.9 x 2.0 cm small echogenic area within 0.7 cm , no vas cularity within area Presence of subchorionic bleed: no GESTATION / SURVEY CRL: 1.9 (8 weeks/3 days) MSD: 3.0 (8 weeks/0 days) Yolk Sac (normal less than 6mm): 0.4 Heart Rate: 167 bpm Rhythm: Normal IUP: Viable IUP Date of LMP: unknown Beta HcG (if available): unknown Not available at this time IMPRESSION: Single living intrauterine fetus with a gestational age of 8 weeks and 2 days. The CHIQUI is 07/28/2018. No complicating process seen.
== END | disposition home or self-care (01) ==
LOC: RADUSWWP 16:23
PROVIDERS: ATTEND Obstetrics & Gynecology
DX: Z36.89 Encounter for other specified antenatal screening (principal)
CPT/HCPCS: 76801; 76817

== ENCOUNTER → 2018-02-13 | Outpatient (CLI) | payer OTHER ==
[2018-02-13 15:32] LABS: HCT 37.6 % (34.0-46.0); HGB 12.7 gm/dL (11.4-16.0); MCH 30.8 pg (25.0-35.0); MCHC 33.8 g/dL (31.0-37.0); Mean Platelet Volume 9.8; Platelet Count 120 k/uL (150-450); RBC 4.13 m/uL (3.80-5.40); RDW 13.1 % (11.5-15.5); WBC 10.3 k/uL (3.8-10.6)
[2018-02-13 15:46] LABS: Glucose 90 mg/dL (74-99)
== END | disposition home or self-care (01) ==
LOC: LABWHC1 14:23
PROVIDERS: ATTEND Obstetrics & Gynecology
DX: Z34.81 Encounter for supervision of other normal pregnancy, first trimester (principal); Z3A.00 Weeks of gestation of pregnancy not specified
CPT/HCPCS: 36415; 82565; 82947; 85027; 86762; 86780; 86850; 86900; 86901; 87340

== ENCOUNTER → 2018-05-21 | Outpatient (CLI) | payer OTHER ==
[2018-05-21 16:43] LABS: HCT 36.7 % (34.0-46.0); HGB 11.9 gm/dL (11.4-16.0); MCH 31.6 pg (25.0-35.0); MCHC 32.6 g/dL (31.0-37.0); Mean Platelet Volume 10.3; Platelet Count 111 k/uL (150-450); RBC 3.78 m/uL (3.80-5.40); RDW 13.2 % (11.5-15.5)
== END ==
LOC: LABWHC1 14:45
PROVIDERS: ATTEND Obstetrics & Gynecology
DX: Z34.82 Encounter for supervision of other normal pregnancy, second trimester (principal); Z3A.00 Weeks of gestation of pregnancy not specified
CPT/HCPCS: 36415; 82950; 85027

== ENCOUNTER 2018-07-22 05:55 | Inpatient (IN) | payer OTHER ==
--- NOTE | 2018-07-21 18:08 | P.HPOB ---
History of Present Illness H&P Date: 07/21/18 Chief Complaint: Induction of labor This is a 28-year-old female 5 para 3 with an estimated date of confinement of 07/28/2018, estimated gestational age of 39 and one sevenths weeks, who presents to labor and delivery for induction of labor. She admits to good movement. She has been feeling frequent contractions. labs: Random glucose-90 Hemoglobin-12.7 Hepatitis B surface antigen-negative nonreactive Rubella-immune Syphilis antibody-negative Blood type-O+ Antibody screen-negative One hour Glucola-100 Platelet count on 05/21/2018 was 111,000 Group B streptococcus-positive Obstetrical history: . History of 3 vaginal deliveries at term. History of 1 termination of . Gynecologic history: No history of sexual transmitted diseases. Social history: She is single. 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 Review of Systems Constitutional: Denies chills, Denies fever Eyes: denies blurred vision, denies pain Ears, nose, mouth and throat: Denies headache, Denies sore throat Cardiovascular: Denies chest pain, Denies shortness of breath Respiratory: Denies cough Gastrointestinal: Reports abdominal pain (Irregular contractions) Genitourinary: Reports pelvic pain, Reports , Denies dysuria, Denies hematuria Musculoskeletal: Reports low back pain Integumentary: Denies pruritus, Denies rash Neurological: Denies numbness, Denies weakness Psychiatric: Denies anxiety, Denies depression Past Medical History Past Medical History: No Reported History History of Any Multi-Drug Resistant Organisms: None Reported Additional Past Surgical History / Comment(s): Past Anesthesia/Blood Transfusion Reactions: Postoperative Nausea & Vomiting ( PONV) Past Psychological History: Anxiety Smoking Status: Current some day smoker Past Alcohol Use History: None Reported Past Drug Use History: None Reported - Past Family History Mother Family Medical History: Diabetes Mellitus Medications and Allergies Home Medications Medication Instructions Recorded Confirmed Type Pnv,Calcium 72/Iron/Folic Acid 1 tab PO DAILY 10/31/16 03/24/17 History [ Plus Tablet] Allergies Allergy/AdvReac Type Severity Reaction Status Date / Time No Known Allergies Allergy Verified 04/08/17 06:07 Exam Osteopathic Statement: *. No significant issues noted on an osteopathic structural exam other than those noted in the History and Physical/Consult. HEENT: Within normal limits Heart: Regular rate and rhythm Lungs: Clear to auscultation bilaterally Abdomen: Cervix: 4-5 cm/60%/-2 heart tones: 140s by Doppler Extremities: Negative Homans Assessment and Plan (1) 39 weeks gestation of Status: Acute Code(s): Z3A.39 - 39 WEEKS GESTATION OF SNOMED Code( s): 22070948 (2) Group B Streptococcus carrier, +RV culture, currently Status: Acute Code(s): O99.820 - STREPTOCOCCUS B CARRIER STATE COMPLICATING SNOMED Code(s): 2822499793843 Plan: Admission for induction of labor. Antibiotic prophylaxis for group B streptococcus. Epidural anesthesia if desired. Will recheck platelets on admission.
[2018-07-22] MEDS ORDERED: LIDOCAINE 1% INJ 10MG/ML (20 ML MDV) SQ PRN (06:04)
[2018-07-22] MEDS ORDERED: TERBUTALINE 1 MG/ML VIAL SQ PRN (06:04)
[2018-07-22] MEDS ORDERED: OXYTOCIN 10 UNIT/ML 1 ML VIAL IM PRN (06:04)
[2018-07-22] MEDS ORDERED: CARBOPROST TROMETHAMINE 250 MCG/ML 1 ML AMP IM PRN (06:04)
[2018-07-22] MEDS ORDERED: METHYLERGONOVINE 0.2 MG/ML 1 ML AMP IM PRN (06:04)
[2018-07-22] MEDS ORDERED: LIDOCAINE 1% 20 ML VIAL (10MG/ML) FOR IV START INTRADERMA PRN (06:04)
[2018-07-22] MEDS ORDERED: AMPICILLIN 2,000 MG in SODIUM CHLORIDE 0.9% 100 ML IVPB STA (06:04)
[2018-07-22] MEDS ORDERED: OXYTOCIN 20 UNITS/1000 ML NS 1,000 ML IV SCH ×2 (06:04→11:34)
[2018-07-22] MEDS: LACTATED RINGERS 1,000 ML IV SCH ×2 (06:18→09:02)
[2018-07-22 06:29] LABS: Basophils % (A) 0 %; Eosinophils # (A) 0.2 k/uL (0-0.7); Eosinophils % (A) 1 %; HCT 37.6 % (34.0-46.0); HGB 12.3 gm/dL (11.4-16.0); Lymphocytes # (A) 1.8 k/uL (1.0-4.8); Lymphocytes % (A) 15 %; MCH 31.2 pg (25.0-35.0); MCHC 32.8 g/dL (31.0-37.0); MCV 95.1 fL (80.0-100.0); Mean Platelet Volume 11.8; Monocytes # (A) 0.6 k/uL (0-1.0); Monocytes % (A) 5 %; Neutrophils % (A) 76 %; Platelet Count 132 k/uL (150-450); RBC 3.95 m/uL (3.80-5.40); RDW 13.4 % (11.5-15.5); WBC 11.8 k/uL (3.8-10.6)
[2018-07-22 06:31] VITALS: BMI 31.9
[2018-07-22] MEDS ORDERED: SODIUM CHLORIDE 0.9% 100 ML BAG ONE (08:47)
[2018-07-22] MEDS ORDERED: ROPIVACAINE 5MG/ML 20ML VIAL ONE (08:47)
[2018-07-22] MEDS ORDERED: fentaNYL (PF) 50 MCG/ML 5 ML AMP ONE (08:47)
[2018-07-22] MEDS ORDERED: ONDANSETRON 4 MG/2 ML VIAL IVP STA (09:19)
[2018-07-22] MEDS ORDERED: AMPICILLIN 1,000 MG in SODIUM CHLORIDE 0.9% 50 ML IVPB SCH (10:00)
[2018-07-22] MEDS ORDERED: WITCH HAZEL 1 EACH MED..PAD TOPICAL PRN (11:34)
[2018-07-22] MEDS ORDERED: diphenhydrAMINE 50 MG/ML 1 ML VIAL IVP PRN ×2 (11:34)
[2018-07-22] MEDS ORDERED: ACETAMINOPHEN TAB 325 MG TAB PO PRN (11:34)
[2018-07-22] MEDS ORDERED: diphenhydrAMINE 50 MG CAP PO PRN (11:34)
[2018-07-22] MEDS ORDERED: diphenhydrAMINE 25 MG CAP PO PRN (11:34)
[2018-07-22] MEDS ORDERED: SIMETHICONE 80 MG CHEWABLE PO PRN (11:34)
[2018-07-22] MEDS ORDERED: ZOLPIDEM 5 MG TAB PO PRN (11:34)
[2018-07-22] MEDS ORDERED: BENZOCAINE/MENTHOL SPRAY 1 GM/SPRAY AEROSOL TOPICAL PRN (11:34)
[2018-07-22] MEDS ORDERED: HYDROCORTISONE 2.5% RECTAL CREAM 30 GM TUBE RECTAL PRN (11:34)
[2018-07-22] MEDS ORDERED: LANOLIN CREAM 5 GM TUBE TOPICAL PRN (11:34)
--- NOTE | 2018-07-22 13:12 | P.PROBDLV ---
Vaginal Delivery Note - . Vaginal Delivery Note: The patient progressed to complete dilation after oxytocin induction of labor and artificial rupture membranes with clear fluid noted. She did receive epidural anesthesia. Once reaching complete dilation, she began pushing. Infant's head came to a crown. Infant's head delivered across the perineum followed by the anterior shoulder. Nose and mouth were bulb suctioned at the perineum. With one further push the remainder the infant easily delivered reducing nuchal cord times one around the body with delivery. was placed on mother's abdomen and a viable male infant was noted with scores of 9 at 1 minute and 9 at 5 minutes and weight of 7 lbs. 6 oz. Placenta delivered shortly thereafter, intact, with three-vessel cord. Cord blood was also obtained secondary to O+ blood type. Uterus contracted well after oxytocin was given and uterine massage was carried out. Inspection of the perineum revealed a second-degree perineal laceration. This area was anesthetized with 1% lidocaine and then sutured with 3-0 and 2-0 Vicryl suture in the usual multilayer fashion.
[2018-07-22] MEDS: IBUPROFEN 600 MG TAB PO PRN (17:39)
[2018-07-22] MEDS: SENNOSIDES-DOCUSATE SODIUM 1 EACH TAB PO SCH (20:28)
[2018-07-22 23:05] VITALS: BP 115/70
[2018-07-23] MEDS: IBUPROFEN 600 MG TAB PO PRN ×2 (00:55→08:02)
--- NOTE | 2018-07-23 07:52 | P.DS ---
Providers Date of admission: 07/22/18 05:55 Expected date of discharge: 07/23/18 Attending physician: Magda Osborne Primary care physician: Stated None - Discharge Diagnosis(es) (1) 39 weeks gestation of Current Visit: No Status: Acute (2) Group B Streptococcus carrier, +RV culture, currently Current Visit: No Status: Acute Hospital Course: This is a 28-year-old female 5 para 3 at 39 and one sevenths weeks who presented for induction of labor. She underwent oxytocin induction of labor and delivered vaginally a viable male infant with scores of 9 at 1 minute and 9 at 5 minutes and weight of 7 lbs. 6 oz. Her course has been uncomplicated. She is bottle feeding. Lochia is decreasing. Pain is fairly well controlled with ibuprofen. Vital signs are stable. Abdomen is soft with fundus firm and nontender. Extremities show negative Homans. Impression is status post vaginal delivery day #1. Plan is to discharge home today. Routine instructions are given. She is advised to follow up in the office in 6 weeks for a check. She is advised to call the office if she has any further questions or concerns prior to her appointment time. Procedures: Oxytocin induction of labor Spontaneous vaginal delivery of a viable male on 07/22/2018 Patient Condition at Discharge: Stable Plan - Discharge Summary New Discharge Prescriptions: New Ibuprofen [Motrin] 600 mg PO Q6HR PRN #60 tab PRN Reason: Mild Pain Or Fever >= 100.5 Continue Pnv,Calcium 72/Iron/Folic Acid [ Plus Tablet] 1 tab PO DAILY Discharge Medication List Pnv,Calcium 72/Iron/Folic Acid [ Plus Tablet] 1 tab PO DAILY 10/31/16 [ History] Ibuprofen [Motrin] 600 mg PO Q6HR PRN #60 tab 07/23/18 [Rx] Follow up Appointment(s)/Referral(s): Magda Osborne DO [Doctor of Osteopathic Medicine] - 6 Weeks Activity/Diet/Wound Care/Special Instructions: Instructions 1. Do not begin any exercise program for 3 weeks. 2. Do not resume sexual relations for 3 weeks or longer if uncomfortable. 3. You may take tub baths or showers at any time. 4. You may use tampons if desired after 3 weeks. 5. Keep the area of episiotomy (stitches) clean and dry. 6. If you are not nursing, wear a good fitting, supportive bra during the day and limit fluid intake for at least 1 week to prevent breast engorgement. 7. Call the office, [phone], within the next week to make appointment for your 6 week checkup if it has not already been made. 8. Report any of the following occurrences to the doctor promptly: a. Heavy, excessive bleeding b. Chills, fever c. Burning or frequency of urination d. Pain or redness and breasts if nursing e. Increasing pain or swelling in episiotomy (stitches). In addition to the above instructions, the following additional should be followed: 1. No heavy lifting or straining (exercising) until after 6 week checkup. 2. Keep abdominal incision clean and dry: You may wear a dressing if more comfortable. 3. Make office appointment for 10 days after going home or as instructed by her doctor. Discharge Disposition: HOME SELF-CARE
[2018-07-23 07:57] LABS: Basophils % (A) 0 %; Eosinophils # (A) 0.1 k/uL (0-0.7); Eosinophils % (A) 1 %; HCT 33.6 % (34.0-46.0); HGB 11.2 gm/dL (11.4-16.0); Lymphocytes # (A) 1.8 k/uL (1.0-4.8); Lymphocytes % (A) 21 %; MCH 31.6 pg (25.0-35.0); MCHC 33.5 g/dL (31.0-37.0); MCV 94.2 fL (80.0-100.0); Mean Platelet Volume 11.7; Monocytes # (A) 0.5 k/uL (0-1.0); Monocytes % (A) 5 %; Neutrophils # (A) 6.2 k/uL (1.3-7.7); Neutrophils % (A) 70 %; Platelet Count 104 k/uL (150-450); RBC 3.56 m/uL (3.80-5.40); RDW 13.3 % (11.5-15.5); WBC 8.8 k/uL (3.8-10.6)
[2018-07-23] MEDS: SENNOSIDES-DOCUSATE SODIUM 1 EACH TAB PO SCH (08:02)
[2018-07-23 08:47] LABS: Large Platelets Present
[2018-07-23 09:26] VITALS: PULSE 134; RESP 34; TEMP 97.6
== END 2018-07-23 13:30 | disposition home or self-care (01) | DRG 807 ==
LOC: 4FBP 05:55
PROVIDERS: ADMIT Obstetrics & Gynecology; ATTEND Obstetrics & Gynecology
PROC: 10E0XZZ Delivery of Products of Conception, External Approach (ICD-10-PCS; principal; 2018-07-22)
PROC: 0KQM0ZZ Repair Perineum Muscle, Open Approach (ICD-10-PCS; 2018-07-22)
PROC: 10907ZC Drainage of Amniotic Fluid, Therapeutic from Products of Conception, Via Natural or Artificial Opening (ICD-10-PCS; 2018-07-22)
PROC: 3E033VJ Introduction of Other Hormone into Peripheral Vein, Percutaneous Approach (ICD-10-PCS; 2018-07-22)
PROC: 00HU33Z Insertion of Infusion Device into Spinal Canal, Percutaneous Approach (ICD-10-PCS; 2018-07-22)
PROC: 3E0R3BZ Introduction of Anesthetic Agent into Spinal Canal, Percutaneous Approach (ICD-10-PCS; 2018-07-22)
DX: O69.81X0 Labor and delivery complicated by cord around neck, without compression, not applicable or unspecified (principal); Z37.0 Single live birth; O70.1 Second degree perineal laceration during delivery; O99.334 Smoking (tobacco) complicating childbirth; O99.344 Other mental disorders complicating childbirth; F17.200 Nicotine dependence, unspecified, uncomplicated; F41.9 Anxiety disorder, unspecified; O99.824 Streptococcus B carrier state complicating childbirth; Z3A.39 39 weeks gestation of pregnancy; Z83.3 Family history of diabetes mellitus; Z71.6 Tobacco abuse counseling
CPT/HCPCS: 85025; 86850; 86900; 86901

== ENCOUNTER 2018-09-18 06:31 | Day surgery (SDC) | payer OTHER ==
[2018-09-16 12:03] VITALS: BMI 31.2
--- NOTE | 2018-09-17 20:35 | P.HPOB ---
History of Present Illness H&P Date: 09/17/18 Chief Complaint: Family planning This is a 28-year-old female 5 para 4 who presents for laparoscopic bilateral tubal ligation via fulguration for family planning. She recently delivered her last child and is bottlefeeding. Obstetrical history: . History of 4 vaginal deliveries and 1 miscarriage. Gynecologic history: No history of sexual transmitted diseases. 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 Review of Systems Constitutional: Denies chills, Denies fever Eyes: denies blurred vision, denies pain Ears, nose, mouth and throat: Denies headache, Denies sore throat Cardiovascular: Denies chest pain, Denies shortness of breath Respiratory: Denies cough Gastrointestinal: Denies abdominal pain, Denies diarrhea, Denies nausea, Denies vomiting Musculoskeletal: Denies myalgias Integumentary: Denies pruritus, Denies rash Neurological: Denies numbness, Denies weakness Psychiatric: Denies anxiety, Denies depression Endocrine: Denies fatigue, Denies weight change Past Medical History Past Medical History: No Reported History Additional Past Medical History / Comment(s): CURRENTLY ON ANTIOBIOTICS FOR UTI History of Any Multi-Drug Resistant Organisms: None Reported Additional Past Surgical History / Comment(s): -2009 Past Anesthesia/Blood Transfusion Reactions: Postoperative Nausea & Vomiting ( PONV) Past Psychological History: No Psychological Hx Reported Smoking Status: Former smoker Past Alcohol Use History: None Reported Past Drug Use History: None Reported - Past Family History Mother Family Medical History: Diabetes Mellitus Medications and Allergies Home Medications Medication Instructions Recorded Confirmed Type Pnv,Calcium 72/Iron/Folic Acid 1 tab PO DAILY 10/31/16 07/22/18 History [ Plus Tablet] Ibuprofen [Motrin] 600 mg PO Q6HR PRN #60 tab 07/23/18 Rx Allergies Allergy/AdvReac Type Severity Reaction Status Date / Time codeine Allergy Rash/Hives Verified 09/16/18 11:58 Exam Osteopathic Statement: *. No significant issues noted on an osteopathic structural exam other than those noted in the History and Physical/Consult. HEENT: Within normal limits Heart: Regular rate and rhythm Lungs: Clear to auscultation bilaterally Abdomen: Soft, nontender Pelvic exam: Uterus is small, nontender, anteverted, with no adnexal masses or tenderness noted. Extremities: Negative Homans Assessment and Plan (1) Family planning Status: Acute Code(s): Z30.09 - ENCOUNTER FOR OTH GENERAL CNSL AND ADVICE ON CONTRACEPTION SNOMED Code(s): 763826107 Plan: Proceed with laparoscopic bilateral tubal ligation via fulguration. I have discussed the risks, benefits, and alternative therapies for the above- mentioned procedure and for both sedation/anesthesia as well as necessary blood products administration, if indicated, as they pertain to this patient. The patient has indicated her understanding and acceptance of the risks and procedures discussed.
[~2018-09-18 06:31] MED LIST: DEXAMETHASONE SOD PHOSPHATE 10 MG/ML 1 ML VIAL IV ONE; HYDROmorphone 0.5 MG/0.5 ML SYRINGE IVP PRN; LACTATED RINGERS 1,000 ML IV SCH; LIDOCAINE 1% 20 ML VIAL (10MG/ML) FOR IV START INTRADERMA PRN; MIDAZOLAM 2 MG/2 ML VIAL IV PRN; ONDANSETRON 4 MG/2 ML VIAL IVP ONE; Pre Op ABX Message 1 EACH MISC MISCELLANE ONE; SCOPOLAMINE 1.5MG/72HR PATCH TRANSDERM ONE
[2018-09-18 07:22] VITALS: RESP 16
[2018-09-18] MEDS ORDERED: KETOROLAC 30 MG/ML 1 ML VIAL ONE (08:09)
[2018-09-18] MEDS ORDERED: GLYCOPYRROLATE 0.2 MG/ML 2 ML VIAL ONE (08:09)
[2018-09-18] MEDS ORDERED: NEOSTIGMINE 1 MG/ML 10 ML VIAL ONE (08:09)
[2018-09-18] MEDS ORDERED: ROCURONIUM BROMIDE 10 MG/ML 10 ML VIAL IV ONE (08:09)
[2018-09-18] MEDS ORDERED: PROPOFOL 10 MG/ML 20 ML VIAL IV ONE (08:09)
[2018-09-18] MEDS ORDERED: fentaNYL (PF) 50 MCG/ML 2 ML AMP ONE (08:09)
[2018-09-18] MEDS ORDERED: MIDAZOLAM 2 MG/2 ML VIAL ONE (08:09)
[2018-09-18] MEDS ORDERED: LIDOCAINE 1% INJ 10MG/ML (20 ML MDV) ONE (08:09)
[2018-09-18] MEDS ORDERED: BUPIVACAINE (PF) 0.25% 30 ML VIAL SQ ONE ×2 (08:35)
--- NOTE | 2018-09-18 08:49 | P.OP ---
Date of Procedure: 09/18/18 Preoperative Diagnosis: Family planning Postoperative Diagnosis: Same Procedure(s) Performed: Laparoscopic bilateral tubal ligation via fulguration Anesthesia: FATIMAH Surgeon: Magda Osborne Estimated Blood Loss (ml): 5 Pathology: none sent Condition: stable Disposition: same day Indications for Procedure: This is a 28-year-old female 5 para 4 who presents for laparoscopic bilateral tubal ligation via fulguration for family planning. She recently delivered her last child and is bottlefeeding. Operative Findings: Uterus is retroverted and sounded to 10 cm. Normal ovaries and tubes are noted. The left ovary does have a small follicular cyst. Description of Procedure: The patient is taken to the operating room where she is placed in the dorsal lithotomy position. She is prepped and draped in the normal sterile fashion. Examination is performed under anesthesia. Uterus is found to be in a retroverted position. No adnexal masses were palpated. Next a bivalve speculum was placed in the patient's vagina. A single-tooth tenaculum was used to grasp the anterior lip of the cervix. The uterus was sounded to 10 cm. The kroner uterine manipulator was then inserted through the cervix and the balloon was inflated. The single-tooth tenaculum is removed speculum was removed gloves were changed and attention was turned to the abdomen. The infraumbilical fold was grasped in transverse fashion with 2 Allis clamps. A small transverse incision was made with a scalpel. A hemostat was used to carry the incision down to the underlying layer of fascia. A towel clip was placed above the umbilicus for retraction. A 11 mm disposable bladeless trocar was then inserted into the peritoneal cavity under direct visualization. Once inside, pneumoperitoneum was achieved with CO2 gas. The insert was removed and the camera was placed. Intraperitoneal placement was confirmed. No bleeding was noted. Next the patient was placed in Trendelenburg position. A small stab incision was made suprapubically and a 5 mm disposable bladeless trocar was inserted into the peritoneal cavity under direct visualization. Once inside pelvic contents were inspected. Next a bipolar Kleppinger instrument was placed through the inferior trocar and the midportion of each tube was brought away from other structures and completely fulgurated on approximate 2-3 cm segment of each tube. Excellent hemostasis was noted. A picture was taken. Pneumoperitoneum was released after the inferior trocar was removed under direct visualization. The upper trocar was then removed. The fascial incision was closed with 0 Vicryl suture in interrupted [id number] stitch. The skin incisions were then closed with 4-0 Vicryl suture in a subcuticular fashion. The skin incisions were injected with quarter percent Marcaine. Approximately 7 mL were used. Next the kroner uterine manipulator was removed. Minimal bleeding was noted. All sponge and needle counts are correct. The patient is then taken to recovery room in stable condition.
[2018-09-18 09:05] VITALS: TEMP 96.9
[2018-09-18 10:09] VITALS: BP 116/74; PULSE 71
== END 2018-09-18 11:05 | disposition home or self-care (01) ==
LOC: OR 06:31
PROVIDERS: ATTEND Obstetrics & Gynecology
DX: Z30.2 Encounter for sterilization (principal); N85.4 Malposition of uterus; N83.02 Follicular cyst of left ovary; Z88.5 Allergy status to narcotic agent; Z87.891 Personal history of nicotine dependence; Z87.440 Personal history of urinary (tract) infections
CPT/HCPCS: 81025; 58670; J2250; J1100; J2710; J2405; J2001; J3010; J1885; J2704

== ENCOUNTER 2020-01-10 14:21 | Emergency (ER) | payer MEDICAID, OTHER ==
[2020-01-10 14:31] VITALS: TEMP 97.9
[2020-01-10] MEDS ORDERED: DEXAMETHASONE SOD PHOSPHATE 10 MG/ML 1 ML VIAL IM STA (14:40)
--- NOTE | 2020-01-10 14:44 | ED ---
Allergic Reaction HPI - General Chief complaint: Allergic Reaction Stated complaint: hives/heart racing/possible allergy to med Time Seen by Provider: 01/10/20 14:33 Source: patient Mode of arrival: ambulatory Limitations: no limitations - History of Present Illness Initial Comments: Patient is a 29-year-old female presenting to emergency Department with a chief complaint of ALLERGIC reaction. Patient reports she was prescribed Bactrim for urinary tract infection. Patient reports she took the medication about 25 minutes prior to arrival. Patient reports she developed pruritus along with a generalized full body rash. Patient reports taking 2 tablets of Benadryl which helped slightly with the itching although still persists. Patient reports her breathing "feels heavy" although she does not have any dyspnea. Denies previous ALLERGIC reactions to Bactrim. States she never taken medication before. She denies dysphagia or odontophagia. - Related Data Home Medications Medication Instructions Recorded Confirmed Pnv,Calcium 72/Iron/Folic Acid 1 tab PO DAILY 10/31/16 09/18/18 [ Plus Tablet] Previous Rx's Medication Instructions Recorded HYDROcodone/APAP 5-325MG [[place] 1 tab PO Q6HR PRN 3 Days #12 tab 09/18/18 5-325] Ibuprofen [Motrin] 600 mg PO Q6HR PRN #60 tab 09/18/18 Cephalexin [Keflex] 500 mg PO BID 5 Days #10 cap 01/10/20 Allergies Allergy/AdvReac Type Severity Reaction Status Date / Time codeine Allergy Rash/Hives Verified 09/18/18 07:24 sulfamethoxazole Allergy Rash/Hives Verified 01/10/20 14:32 [From Bactrim] trimethoprim [From Bactrim] Allergy Rash/Hives Verified 01/10/20 14:32 Review of Systems ROS Statement: Those systems with pertinent positive or pertinent negative responses have been documented in the HPI. ROS Other: All systems not noted in ROS Statement are negative. Past Medical History Past Medical History: No Reported History Additional Past Medical History / Comment(s): CURRENTLY ON ANTIOBIOTICS FOR UTI History of Any Multi-Drug Resistant Organisms: None Reported Additional Past Surgical History / Comment(s): -2009 Past Anesthesia/Blood Transfusion Reactions: Postoperative Nausea & Vomiting (PONV) Past Psychological History: No Psychological Hx Reported Smoking Status: Former smoker Past Alcohol Use History: None Reported Past Drug Use History: None Reported - Past Family History Mother Family Medical History: Diabetes Mellitus General Exam Limitations: no limitations General appearance: alert, in no apparent distress Head exam: Present: atraumatic, normocephalic, normal inspection Eye exam: Present: normal appearance, PERRL, EOMI Pupils: Present: normal accommodation ENT exam: Present: normal exam, normal oropharynx, mucous membranes moist, TM's normal bilaterally, normal external ear exam, other (No signs of angioedema) Neck exam: Present: normal inspection, full ROM Respiratory exam: Present: normal lung sounds bilaterally. Absent: respiratory distress, wheezes, rales, rhonchi, decreased breath sounds Cardiovascular Exam: Present: normal rhythm, tachycardia, normal heart sounds Extremities exam: Present: normal inspection, full ROM Back exam: Present: normal inspection, full ROM Neurological exam: Present: alert, oriented X3 Psychiatric exam: Present: normal affect, normal mood Skin exam: Present: warm, dry, intact, normal color Course Vital Signs 01/10/20 14:27 Temperature 97.9 F Pulse Rate 118 H Respiratory 20 Rate Blood Pressure 128/73 O2 Sat by Pulse 99 Oximetry Medical Decision Making - Medical Decision Making Patient is a 29-year-old female presenting to emergency Department with a chief complaint of ALLERGIC reaction. Patient to Bactrim about 20 minutes prior to arrival with onset of hives and chest discomfort. On exam patient is not in any respiratory distress. This does not appear to be an IgE mediated anaphylactic reaction. Patient was given 10 mg of IV Decadron. Reevaluation patient reports improvement of symptoms. She already took Benadryl prior to arrival. Advised the patient stopped taking the Bactrim and instead we'll give her a prescription of Keflex. Patient states she used Keflex previous and it worked well. She was advised to continue taking the Benadryl at home. Return parameters discussed. Case discussed with physician. Disposition Clinical Impression: Allergic reaction caused by a drug, Urticaria Disposition: HOME SELF-CARE Condition: Stable Instructions (If sedation given, give patient instructions): Anaphylaxis (ED) Additional Instructions: Take prescribed medication as directed. Follow-up with primary care. Continue taking the Benadryl. Return to emergency department if symptoms worsen. Prescriptions: Cephalexin [Keflex] 500 mg PO BID 5 Days #10 cap Is patient prescribed a controlled substance at d/c from ED?: No Referrals: Catherine Jiang MD [Primary Care Provider] - 1-2 days Time of Disposition: 15:25
[2020-01-10 15:32] VITALS: BP 120/78; PULSE 88; RESP 18
== END 2020-01-10 15:29 | disposition home or self-care (01) ==
LOC: EC 14:21
DX: L50.0 Allergic urticaria (principal); T36.8X5A Adverse effect of other systemic antibiotics, initial encounter; Z88.1 Allergy status to other antibiotic agents; Z88.2 Allergy status to sulfonamides; Z88.5 Allergy status to narcotic agent; Z87.891 Personal history of nicotine dependence
CPT/HCPCS: 99283; 96372; J1100

== ENCOUNTER 2020-01-20 03:21 | Emergency (ER) | payer MEDICAID, OTHER ==
[2020-01-20 03:59] LABS: Appearance,Urine Clear (Clear); Bilirubin,Urine Negative (Negative); Blood,Urine Negative (Negative); Color,Urine Yellow; Glucose,Urine (UA) Negative (Negative); Ketones,Urine Negative (Negative); Leukocyte Esterase,Urine Small (Negative); Mucus,Urine Rare /hpf; Nitrite,Urine Negative (Negative); PH, Urine 5.5 (5.0-8.0); Protein,Urine Negative (Negative); Specific Gravity,Urine 1.029 (1.001-1.035); Squamous Epithelial Cell,Urine <1 /hpf (0-4); WBC,Urine <1 /hpf (0-5)
[2020-01-20] MEDS ORDERED: IBUPROFEN 600 MG TAB PO STA (05:01)
[2020-01-20] MEDS ORDERED: ACETAMINOPHEN TAB 325 MG TAB PO STA (05:01)
--- NOTE | 2020-01-20 05:47 | ED ---
Female Urogenital HPI - General Chief complaint: Urogenital Stated complaint: Lower abd pain Time Seen by Provider: 01/20/20 03:32 Source: patient Mode of arrival: ambulatory Limitations: no limitations - History of Present Illness Initial comments: This patient is a 29-year-old woman who presents to be evaluated for low pelvic pain. The patient states that it had come on following intercourse a couple of hours ago. She describes it as intense sharp cramping pain. She has had this intermittently going back since she had her last child but states that it has now become more frequent and more severe. The patient is denying symptoms of STI, including no discharge, fever or chills. She has not had new sexual partners. The patient does state that she had treatment for urinary tract infection 7-10 days ago she finished the course of antibiotics and is not having any urinary frequency, urgency, or dysuria. MD Complaint: pelvic pain -: hour(s) Location: suprapubic Radiation: non-radiating Severity: moderate Quality: cramping, sharp Consistency: constant Improves with: none Worsens with: intercourse Patient : No - Related Data Sexually active: Yes Home Medications Medication Instructions Recorded Confirmed Pnv,Calcium 72/Iron/Folic Acid 1 tab PO DAILY 10/31/16 09/18/18 [ Plus Tablet] Previous Rx's Medication Instructions Recorded HYDROcodone/APAP 5-325MG [[place] 1 tab PO Q6HR PRN 3 Days #12 tab 09/18/18 5-325] Ibuprofen [Motrin] 600 mg PO Q6HR PRN #60 tab 09/18/18 Cephalexin [Keflex] 500 mg PO BID 5 Days #10 cap 01/10/20 Naproxen Sodium [Anaprox DS] 550 mg PO Q12HR #30 tab 01/20/20 Allergies Allergy/AdvReac Type Severity Reaction Status Date / Time codeine Allergy Rash/Hives Verified 01/20/20 03:27 sulfamethoxazole Allergy Rash/Hives Verified 01/20/20 03:27 [From Bactrim] trimethoprim [From Bactrim] Allergy Rash/Hives Verified 01/20/20 03:27 Review of Systems ROS Statement: Those systems with pertinent positive or pertinent negative responses have been documented in the HPI. ROS Other: All systems not noted in ROS Statement are negative. Constitutional: Denies: fever, chills Respiratory: Denies: cough Cardiovascular: Denies: chest pain Gastrointestinal: Reports: as per HPI, abdominal pain. Denies: nausea, vomiting, diarrhea, constipation, melena, hematochezia Genitourinary: Denies: urgency, dysuria, frequency, hematuria, discharge, abnormal menses Musculoskeletal: Denies: back pain Skin: Denies: rash Neurological: Denies: headache Past Medical History Past Medical History: No Reported History Additional Past Medical History / Comment(s): CURRENTLY ON ANTIOBIOTICS FOR UTI History of Any Multi-Drug Resistant Organisms: None Reported Additional Past Surgical History / Comment(s): -2009 Past Anesthesia/Blood Transfusion Reactions: Postoperative Nausea & Vomiting (PONV) Past Psychological History: No Psychological Hx Reported Smoking Status: Current every day smoker Past Alcohol Use History: None Reported Past Drug Use History: None Reported - Past Family History Mother Family Medical History: Diabetes Mellitus General Exam Limitations: no limitations General appearance: alert, in no apparent distress Head exam: Present: atraumatic, normocephalic Eye exam: Present: normal appearance. Absent: scleral icterus, conjunctival injection Respiratory exam: Present: normal lung sounds bilaterally. Absent: respiratory distress, wheezes, rales, rhonchi, stridor Cardiovascular Exam: Present: regular rate, normal rhythm, normal heart sounds. Absent: systolic murmur, diastolic murmur, rubs, gallop GI/Abdominal exam: Present: soft. Absent: distended, tenderness, guarding, rebound, rigid, mass, pulsatile mass, hernia External exam: Present: normal external exam. Absent: erythema, swelling, lesions, lacerations, ecchymosis Speculum exam: Present: normal speculum exam. Absent: erythema, vaginal discharge, cervical discharge, vaginal bleeding, foreign body By manual exam: Present: adnexal tenderness, uterine tenderness Extremities exam: Present: normal inspection, normal capillary refill. Absent: pedal edema Neurological exam: Present: alert Skin exam: Present: warm, dry, intact, normal color. Absent: rash Course Vital Signs 01/20/20 01/20/20 03:25 05:55 Temperature 97.5 F L 96.2 F L Pulse Rate 122 H 85 Respiratory 18 17 Rate Blood Pressure 122/74 111/65 O2 Sat by Pulse 100 99 Oximetry Medical Decision Making - Medical Decision Making Patient is 29-year-old woman with pelvic pain. The initial workup here is negative. From the gynecologic exam, there is diffuse tenderness. I did discuss recommendation for empiric treatment for possible sexually transmitted infection, patient declines at this point saying that she has not had a new sexual partners. There is no concerning discharge on the exam. The differential does include infection, cyst, endometriosis. 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 - Lab Data Lab Results 01/20/20 01/20/20 Range/Units 03:45 03:45 Urine Color Yellow Urine Appearance Clear (Clear) Urine pH 5.5 (5.0-8.0) Ur Specific [place] 1.029 (1.001-1.035) Urine Protein Negative (Negative) Urine Glucose (UA) Negative (Negative) Urine Ketones Negative (Negative) Urine Blood Negative (Negative) Urine Nitrite Negative (Negative) Urine Bilirubin Negative (Negative) Urine Urobilinogen 2.0 (<2.0) mg/dL Ur Leukocyte Esterase Small H (Negative) Urine WBC <1 (0-5) /hpf Ur Squamous Epith Cells <1 (0-4) /hpf Urine Mucus Rare H (None) /hpf Urine HCG, Qual Not Detected (Not Detectd) Disposition Clinical Impression: Pelvic pain Disposition: HOME SELF-CARE Condition: Good Instructions (If sedation given, give patient instructions): Pelvic Pain in Women (ED) Prescriptions: Naproxen Sodium [Anaprox DS] 550 mg PO Q12HR #30 tab Is patient prescribed a controlled substance at d/c from ED?: No Referrals: Catherine Jiang MD [Primary Care Provider] - 1-2 days Maura Rich MD [STAFF PHYSICIAN] - 1-2 days
[2020-01-20 06:01] VITALS: BP 111/65; PULSE 85; RESP 17; TEMP 96.2
[2020-01-21 14:04] LABS: N. gonorrhoeae,PCR Negative (Neg,Equiv); Neisseria Source Urine
[2020-01-21 14:09] LABS: C. trachomatis,PCR Negative (Neg,Equiv); Chlamydia trachomatis Source Urine
== END 2020-01-20 06:03 | disposition home or self-care (01) ==
LOC: EC 03:21
DX: R10.2 Pelvic and perineal pain (principal); R10.30 Lower abdominal pain, unspecified; F17.200 Nicotine dependence, unspecified, uncomplicated; Z88.5 Allergy status to narcotic agent; Z88.1 Allergy status to other antibiotic agents; Z88.2 Allergy status to sulfonamides
CPT/HCPCS: 81001; 81025; 87070; 87491; 87591; 87808; 99284

== ENCOUNTER → 2020-01-22 | Outpatient (CLI) | payer MEDICAID, OTHER ==
[2020-01-22 08:58] LABS: Basophils % (A) 0 %; Eosinophils # (A) 0.2 k/uL (0-0.7); Eosinophils % (A) 2 %; HCT 40.4 % (34.0-46.0); HGB 13.4 gm/dL (11.4-16.0); Lymphocytes # (A) 2.9 k/uL (1.0-4.8); Lymphocytes % (A) 28 %; MCHC 33.2 g/dL (31.0-37.0); MCV 93.4 fL (80.0-100.0); Mean Platelet Volume 10.4; Monocytes # (A) 0.4 k/uL (0-1.0); Monocytes % (A) 4 %; Neutrophils # (A) 6.6 k/uL (1.3-7.7); Neutrophils % (A) 64 %; Platelet Count 164 k/uL (150-450); RBC 4.32 m/uL (3.80-5.40); RDW 12.8 % (11.5-15.5); WBC 10.3 k/uL (3.8-10.6)
[2020-01-22 16:11] LABS: African American GFR (CKD) 88.2 (60.0-200.0); Non-African American GFR(CKD) 76.1 (60.0-200.0)
[2020-01-22 16:24] LABS: Hepatitis B Surface AB- Quant 200.9 mIU/mL; Hepatitis B Surface Antibody Reactive (Non-Reactive); Hepatitis B Surface Antigen Non-Reactive (Non-Reactive)
== END | disposition home or self-care (01) ==
LOC: LABWHC1 08:13
PROVIDERS: ATTEND Dermatology
DX: L40.0 Psoriasis vulgaris (principal)
CPT/HCPCS: 36415; 82565; 84450; 84460; 85025; 86480; 86706; 87340

== ENCOUNTER → 2020-01-22 | Outpatient (CLI) | payer MEDICAID, OTHER ==
--- NOTE | 2020-01-22 08:12 | US ---
EXAMINATION TYPE: US transvaginal DATE OF EXAM: 01/22/2020 COMPARISON: 12/18/2017 CLINICAL HISTORY: 29-year-old female with endometriosis, N83.209 Ovarian Cyst. TECHNIQUE: Transabdominal sonographic images of the pelvis were acquired. Transvaginal sonographic images were medically necessary to better assess the following anatomy: Date of LMP: 01/10/20 FINDINGS: EXAM MEASUREMENTS: Uterus: 8.4 x 4.0 x 4.5 cm Endometrial Stripe: 0.7 cm Right Ovary: 3.3 x 2.4 x 2.3 cm Left Ovary: Obscured by overlying bowel gas 1. Uterus: Anteverted, heterogeneous 2. Endometrium: wnl 3. Right Ovary: complex ovoid structure measuring 1.9 x 1.0 x 1.1cm (versus 2.3 x 2.0 x 1.9 cm, prev iously) 4. Left Ovary: Obscured by overlying bowel gas 5. Bilateral Adnexa: wnl 6. Posterior cul-de-sac: wnl IMPRESSION: 1. Complex lesion within the right ovary measuring 1.9 x 1.1 cm may represent a hemorrhagic cyst or h emorrhagic corpus luteum. 6-8 week follow-up recommended to ensure involution. The previous cystic st ructure seen on 12/18/2017 measured up to 2.3 x 2.0 cm. 2. Left ovary obscured by bowel gas and not evaluated.
== END | disposition home or self-care (01) ==
LOC: EC 06:56
PROVIDERS: ATTEND Emergency Medicine
DX: N83.209 Unspecified ovarian cyst, unspecified side (principal); R14.3 Flatulence
CPT/HCPCS: 76830

== ENCOUNTER → 2021-05-19 | Outpatient (CLI) | payer OTHER ==
[2021-05-19 19:07] LABS: Basophils # (A) 0.03 X 10*3/uL (0.00-0.10); Basophils % (A) 0.6 %; Eosinophils # (A) 0.18 X 10*3/uL (0.04-0.35); Eosinophils % (A) 3.5 %; HCT 43.9 % (37.2-46.3); HGB 14.2 g/dL (12.0-15.0); Lymphocytes # (A) 1.77 X 10*3/uL (0.90-5.00); Lymphocytes % (A) 34.6 %; MCH 30.3 pg (27.0-32.0); MCHC 32.3 g/dL (32.0-37.0); MCV 93.8 fL (80.0-97.0); Mean Platelet Volume 12.6 fL (9.5-12.2); Monocytes # (A) 0.35 X 10*3/uL (0.20-1.00); Monocytes % (A) 6.8 %; Neutrophils # (A) 2.77 X 10*3/uL (1.80-7.70); Neutrophils % (A) 54.3 %; Platelet Count 156 X 10*3/uL (140-440); RBC 4.68 X 10*6/uL (4.10-5.20); RDW 12.6 % (11.5-14.5); WBC 5.11 X 10*3/uL (4.50-10.00)
[2021-05-19 22:50] LABS: African American GFR (CKD) 77.5 (60.0-200.0); Non-African American GFR(CKD) 66.8 (60.0-200.0)
== END | disposition home or self-care (01) ==
LOC: LABWHC1 14:14
PROVIDERS: ATTEND Dermatology
DX: L40.0 Psoriasis vulgaris (principal)
CPT/HCPCS: 36415; 82565; 84450; 84460; 85025; 86480

== ENCOUNTER → 2022-08-09 | Outpatient (CLI) | payer OTHER | END | disposition home or self-care (01) | LOC: LABWHC1 14:20 | PROVIDERS: ATTEND Physician Assistant Medical | DX: L70.8 Other acne (principal) | CPT/HCPCS: 36415; 84132 ==

== ENCOUNTER → 2023-11-29 | Outpatient (CLI) | payer OTHER | END | disposition home or self-care (01) | LOC: LABWHC1 07:07 | PROVIDERS: ATTEND Dermatology MOHS-Micrographic Surgery | DX: L40.0 Psoriasis vulgaris (principal) | CPT/HCPCS: 36415; 86480 ==

== ENCOUNTER 2024-05-10 23:42 | Emergency (ER) | payer OTHER ==
[2024-05-11 00:05] LABS: Appearance,Urine Turbid (Clear); Bacteria,Urine Rare /hpf; Bilirubin,Urine Negative (Negative); Blood,Urine Trace (Negative); Color,Urine Yellow; Glucose,Urine (UA) Negative (Negative); Ketones,Urine Negative (Negative); Leukocyte Esterase,Urine Large (Negative); Mucus,Urine Occasional /hpf; Nitrite,Urine Negative (Negative); PH, Urine 5.5 (5.0-8.0); Protein,Urine Trace (Negative); RBC,Urine 7 /hpf (0-5); Specific Gravity,Urine 1.031 (1.001-1.035); Squamous Epithelial Cell,Urine 25 /hpf (0-4); Urobilinogen,Urine <2.0 mg/dL (<2.0); WBC,Urine 36 /hpf (0-5)
[2024-05-11] MEDS: PHENAZOPYRIDINE 200 MG TAB PO STA (00:18)
--- NOTE | 2024-05-11 00:40 | ED ---
Female Urogenital HPI - General Chief complaint: Urogenital Stated complaint: UTI Time Seen by Provider: 05/11/24 00:39 Source: patient, RN notes reviewed Mode of arrival: ambulatory Limitations: no limitations - History of Present Illness Initial comments: 34-year-old female presented to the ER with a chief complaint of dysuria. Patient states she started to experience lower abdominal pain and painful urination with urinary frequency yesterday. She states symptoms are resolved while going to bed but returned while at work today. Patient reports she frequently gets UTIs and this feels very similar. Denies any fevers or chills. Denies chance of as she had a tubal ligation. No other complaints. Last Menstrual Period: 05/03/24 - Related Data Home Medications Medication Instructions Recorded Confirmed Pnv,Calcium 72/Iron/Folic Acid 1 tab PO DAILY 10/31/16 09/18/18 [ Plus Tablet] Previous Rx's Medication Instructions Recorded HYDROcodone/APAP 5-325MG [[place] 1 tab PO Q6HR PRN 3 Days #12 tab 09/18/18 5-325] Ibuprofen [Motrin] 600 mg PO Q6HR PRN #60 tab 09/18/18 Cephalexin [Keflex] 500 mg PO BID 5 Days #10 cap 01/10/20 Naproxen Sodium [Anaprox DS] 550 mg PO Q12HR #30 tab 01/20/20 Cephalexin [Keflex] 500 mg PO BID #14 cap 05/11/24 Fluconazole 150 mg PO ONCE #2 tab 05/11/24 Phenazopyridine [Pyridium] 200 mg PO TID #6 tablet 05/11/24 Allergies Allergy/AdvReac Type Severity Reaction Status Date / Time codeine Allergy Rash/Hives Verified 05/10/24 23:45 sulfamethoxazole Allergy Rash/Hives Verified 05/10/24 23:45 [From Bactrim] trimethoprim [From Bactrim] Allergy Rash/Hives Verified 05/10/24 23:45 Review of Systems ROS Statement: Those systems with pertinent positive or pertinent negative responses have been documented in the HPI. ROS Other: All systems not noted in ROS Statement are negative. Past Medical History Past Medical History: No Reported History, Thyroid Disorder Additional Past Medical History / Comment(s): Autoimmunue arthritis, cysts, psorasis History of Any Multi-Drug Resistant Organisms: None Reported Past Surgical History: Tubal Ligation Additional Past Surgical History / Comment(s): -2009 Past Anesthesia/Blood Transfusion Reactions: Postoperative Nausea & Vomiting (PONV) Past Psychological History: No Psychological Hx Reported Smoking Status: Former smoker Past Alcohol Use History: None Reported Past Drug Use History: None Reported - Past Family History Mother Family Medical History: Diabetes Mellitus General Exam Limitations: no limitations General appearance: alert, in no apparent distress Respiratory exam: Present: normal lung sounds bilaterally. Absent: respiratory distress, wheezes, rales, rhonchi, stridor Cardiovascular Exam: Present: regular rate, normal rhythm, normal heart sounds. Absent: systolic murmur, diastolic murmur, rubs, gallop, clicks GI/Abdominal exam: Present: soft, normal bowel sounds. Absent: distended, tenderness, guarding, rebound, rigid Neurological exam: Present: alert, oriented X3, CN II-XII intact Skin exam: Present: warm, dry, intact, normal color. Absent: rash Course Vital Signs 05/10/24 05/11/24 23:45 01:14 Temperature 97 F L 97.8 F Pulse Rate 90 77 Respiratory 20 19 Rate Blood Pressure 128/85 119/74 O2 Sat by Pulse 100 98 Oximetry Medical Decision Making - Medical Decision Making Was pt. sent in by a medical professional or institution (Dr. PA, FISH HOUSE WORKER, urgent care, hospital, or half-way...) When possible be specific @ -No Did you speak to anyone other than the patient for history (EMS, parent, family, police, friend...)? What history was obtained from this source @ -No Did you review nursing and triage notes (agree or disagree)? Why? @ -I reviewed and agree with nursing and triage notes Were old charts reviewed (outside hosp., previous admission, EMS record, old EKG, old radiological studies, urgent care reports/EKG's, half-way records)? Report findings @ -No old charts were reviewed Differential Diagnosis (chest pain, altered mental status, abdominal pain women, abdominal pain men, vaginal bleeding, weakness, fever, dyspnea, syncope, headache, dizziness, GI bleed, back pain, seizure, CVA, palpatations, mental health, musculoskeletal)? @ -UTI, urinary retention, nephrolithiasis, viral illness This list is not meant to be all-inclusive EKG interpreted by me (3pts min.). @ -None done X-rays interpreted by me (1pt min.). @ -None done CT interpreted by me (1pt min.). @ -None done U/S interpreted by me (1pt. min.). @ -None done What testing was considered but not performed or refused? (CT, X-rays, U/S, labs)? Why? @ -None What meds were considered but not given or refused? Why? @ -None Did you discuss the management of the patient with other professionals (professionals i.e. , PA, FISH HOUSE WORKER, lab, RT, psych nurse, social psychologist, svp chief marketing officer, teacher, senior vice president and chief information officer, manager case management)? Give summary @ -No Was smoking cessation discussed for >3mins.? @ -No Was critical care preformed (if so, how long)? @ -No Were there social determinants of health that impacted care today? How? (Homelessness, low income, unemployed, alcoholism, drug addiction, transportation, low edu. Level, literacy, decrease access to med. care, fdc, rehab)? @ -No Was there de-escalation of care discussed even if they declined (Discuss DNR or withdrawal of care, Hospice)? DNR status @ -No What co-morbidities impacted this encounter? (DM, HTN, Smoking, COPD, CAD, Cancer, CVA, ARF, Chemo, Hep., AIDS, mental health diagnosis, sleep apnea, morbid obesity)? @ -None Was patient admitted / discharged? Hospital course, mention meds given and route, prescriptions, significant lab abnormalities, going to OR and other pertinent info. @ -Discharge. 34-year-old female presented to ER with a chief complaint of urinary frequency. History and physical exam completed. Vitals within normal limits. Patient in no signs of acute distress and nontoxic-appearing. No focal abdominal tenderness. Exam benign. Urinalysis concerning of infection with 36 WBCs and 7 RBCs. Urine sent for culture. Urine hCG negative. Patient received p.o. Pyridium for symptom control in the ER. Upon reevaluation, results discussed with patient, all questions answered. Keflex prescribed. First dose in the ER. Pyridium also prescribed. Patient states when taking antibiotic she frequently gets yeast infections. Fluconazole prescribed prophylactically. Strict return parameters discussed. Patient discharged in stable condition with follow-up to PCP. Patient verbally expressed understanding agree with care plan. Case discussed with ED attending, Dr. Montano. Undiagnosed new problem with uncertain prognosis? @ -No Drug Therapy requiring intensive monitoring for toxicity (Heparin, Nitro, Insulin, Cardizem)? @ -No Were any procedures done? @ -No Diagnosis/symptom? @ -UTI Acute, or Chronic, or Acute on Chronic? @ -Acute Uncomplicated (without systemic symptoms) or Complicated (systemic symptoms)? @ -Uncomplicated Side effects of treatment? @ -No Exacerbation, Progression, or Severe Exacerbation? @ -No Poses a threat to life or bodily function? How? (Chest pain, USA, CT, pneumonia, PE, COPD, DKA, ARF, appy, cholecystitis, CVA, Diverticulitis, Homicidal, Suicidal, threat to staff... and all critical care pts) @ -No - Lab Data Lab Results 05/10/24 05/10/24 Range/Units 23:52 23:52 Urine Color Yellow Urine Appearance Turbid H (Clear) Urine pH 5.5 (5.0-8.0) Ur Specific [place] 1.031 (1.001-1.035) Urine Protein Trace H (Negative) Urine Glucose (UA) Negative (Negative) Urine Ketones Negative (Negative) Urine Blood Trace H (Negative) Urine Nitrite Negative (Negative) Urine Bilirubin Negative (Negative) Urine Urobilinogen <2.0 (<2.0) mg/dL Ur Leukocyte Esterase Large H (Negative) Urine RBC 7 H (0-5) /hpf Urine WBC 36 H (0-5) /hpf Ur Squamous Epith Cells 25 H (0-4) /hpf Urine Bacteria Rare H (None) /hpf Urine Mucus Occasional H (None) /hpf Urine HCG, Qual Not Detected (Not Detectd) Disposition Clinical Impression: UTI (urinary tract infection) Disposition: HOME SELF-CARE Condition: Stable Instructions (If sedation given, give patient instructions): Urinary Tract Infection in Women (ED) Additional Instructions: Complete full course of antibiotics. Follow-up with PCP. Return to the ER for any new or worsening concerns. Prescriptions: Fluconazole 150 mg PO ONCE #2 tab Cephalexin [Keflex] 500 mg PO BID #14 cap Phenazopyridine [Pyridium] 200 mg PO TID #6 tablet Is patient prescribed a controlled substance at d/c from ED?: No Referrals: Chandana Aparicio MD [Primary Care Provider] - 1-2 days Time of Disposition: 00:56
[2024-05-11] MEDS: CEPHALEXIN 500 MG CAP PO STA (01:04)
[2024-05-11 01:35] VITALS: BP 119/74; PULSE 77; RESP 19; TEMP 97.8
== END 2024-05-11 01:14 | disposition home or self-care (01) ==
LOC: EC 23:42
CPT/HCPCS: 81001; 81025; 87086; 99283

== ENCOUNTER 2024-06-28 18:53 | Emergency (ER) | payer OTHER ==
--- NOTE | 2024-06-28 19:24 | ED ---
Psych HPI - General Chief Complaint: Psychiatric Symptoms Stated Complaint: Mental health eval Time Seen by Provider: 06/28/24 19:10 Source: patient, RN notes reviewed Mode of arrival: ambulatory - History of Present Illness Initial Comments: This is a 34-year-old female presenting to the emergency department chief complaint of anxiety. Patient states that she has been going through major stressors in life with her marriage and . She was walking into work this evening, at [employer], when she received a message from her stating that he is filing for divorce. Patient became extremely upset and tearful and was advised by staff to report to the emergency department for further evaluation. She is denying suicidal ideation, homicidal ideation, audit ory visual hallucinations. Patient states that she has recently began therapy at [facility] and started on an SSRI this week. She denies previous suicidal attempts or psychiatric hospitalizations. - Related Data Home Medications Medication Instructions Recorded Confirmed Pnv,Calcium 72/Iron/Folic Acid 1 tab PO DAILY 10/31/16 09/18/18 [ Plus Tablet] Previous Rx's Medication Instructions Recorded HYDROcodone/APAP 5-325MG [[place] 1 tab PO Q6HR PRN 3 Days #12 tab 09/18/18 5-325] Ibuprofen [Motrin] 600 mg PO Q6HR PRN #60 tab 09/18/18 Cephalexin [Keflex] 500 mg PO BID 5 Days #10 cap 01/10/20 Naproxen Sodium [Anaprox DS] 550 mg PO Q12HR #30 tab 01/20/20 Cephalexin [Keflex] 500 mg PO BID #14 cap 05/11/24 Fluconazole 150 mg PO ONCE #2 tab 05/11/24 Phenazopyridine [Pyridium] 200 mg PO TID #6 tablet 05/11/24 Allergies Allergy/AdvReac Type Severity Reaction Status Date / Time codeine Allergy Rash/Hives Verified 06/28/24 18:55 sulfamethoxazole Allergy Rash/Hives Verified 06/28/24 18:55 [From Bactrim] trimethoprim [From Bactrim] Allergy Rash/Hives Verified 06/28/24 18:55 Review of Systems ROS Statement: Those systems with pertinent positive or pertinent negative responses have been documented in the HPI. ROS Other: All systems not noted in ROS Statement are negative. Past Medical History Past Medical History: No Reported History, Thyroid Disorder Additional Past Medical History / Comment(s): Autoimmunue arthritis, cysts, psorasis History of Any Multi-Drug Resistant Organisms: None Reported Past Surgical History: Tubal Ligation Additional Past Surgical History / Comment(s): -2009 Past Anesthesia/Blood Transfusion Reactions: Postoperative Nausea & Vomiting (PONV) Smoking Status: Former smoker Past Alcohol Use History: None Reported Past Drug Use History: None Reported - Past Family History Mother Family Medical History: Diabetes Mellitus General Exam Limitations: no limitations General appearance: alert, in no apparent distress, anxious Eye exam: Present: normal appearance, PERRL, EOMI. Absent: scleral icterus, conjunctival injection, periorbital swelling Neck exam: Present: normal inspection. Absent: tenderness, meningismus, lymphadenopathy Respiratory exam: Present: normal lung sounds bilaterally. Absent: respiratory distress, wheezes, rales, rhonchi, stridor Cardiovascular Exam: Present: regular rate, normal rhythm, normal heart sounds. Absent: systolic murmur, diastolic murmur, rubs, gallop, clicks GI/Abdominal exam: Present: soft, normal bowel sounds. Absent: distended, tenderness, guarding, rebound, rigid Extremities exam: Present: normal inspection, full ROM, normal capillary refill. Absent: tenderness, pedal edema, joint swelling, calf tenderness Back exam: Present: normal inspection Psychiatric exam: Present: normal affect, normal mood, depressed Course Vital Signs 06/28/24 06/28/24 18:54 21:54 Temperature 98.2 F 98.3 F Pulse Rate 118 H 84 Respiratory 16 18 Rate Blood Pressure 146/99 128/70 O2 Sat by Pulse 100 100 Oximetry Medical Decision Making - Medical Decision Making Was pt. sent in by a medical professional or institution (, PA, CLINICAL WRITER, urgent care, hospital, or long-term...) When possible be specific @ -No Did you speak to anyone other than the patient for history (EMS, parent, family, police, friend...)? What history was obtained from this source @ -No Did you review nursing and triage notes (agree or disagree)? Why? @ -I reviewed and agree with nursing and triage notes Were old charts reviewed (outside hosp., previous admission, EMS record, old EKG, old radiological studies, urgent care reports/EKG's, long-term records)? Report findings @ -No old charts were reviewed Differential Diagnosis (chest pain, altered mental status, abdominal pain women, abdominal pain men, vaginal bleeding, weakness, fever, dyspnea, syncope, headache, dizziness, GI bleed, back pain, seizure, CVA, palpatations, mental health, musculoskeletal)? @ -Differential Mental Health Depression, anxiety, bipolar, psychosis, schizophrenia, borderline personality, situational depression, adjustment disorder, behavioral disorder, brain tumor, malingering, substance abuse, encephalopathy, medication reaction, dementia, hypothyroidism, degenerative neurologic disorder, lupus.... This is not meant to be all-inclusive list EKG interpreted by me (3pts min.). @ -None X-rays interpreted by me (1pt min.). @ -None done CT interpreted by me (1pt min.). @ -None done U/S interpreted by me (1pt. min.). @ -None done What testing was considered but not performed or refused? (CT, X-rays, U/S, labs)? Why? @ -None What meds were considered but not given or refused? Why? @ -None Did you discuss the management of the patient with other professionals (pr ofessionals i.e. , PA, CLINICAL WRITER, lab, RT, psych nurse, health and social care teacher, registration rep, teacher, fiscal officer, case briefer)? Give summary @ -No Was smoking cessation discussed for >3mins.? @ -No Was critical care preformed (if so, how long)? @ -No Were there social determinants of health that impacted care today? How? (Homelessness, low income, unemployed, alcoholism, drug addiction, transportation, low edu. Level, literacy, decrease access to med. care, halfway, rehab)? @ -No Was there de-escalation of care discussed even if they declined (Discuss DNR or withdrawal of care, Hospice)? DNR status @ -No What co-morbidities impacted this encounter? (DM, HTN, Smoking, COPD, CAD, Cancer, CVA, ARF, Chemo, Hep., AIDS, mental health diagnosis, sleep apnea, morbid obesity)? @ -None Was patient admitted / discharged? Hospital course, mention meds given and route, prescriptions, significant lab abnormalities, going to OR and other pertinent info. @ -Discharge. 34-year-old female with acute anxiety following major stressor. Patient is medically cleared for EPS evaluation. EPS has evaluated patient and feel comfortable discharge with safety plan in place. Discussed with Dr. Stahl Undiagnosed new problem with uncertain prognosis? @ -No Drug Therapy requiring intensive monitoring for toxicity (Heparin, Nitro, Insulin, Cardizem)? @ -No Were any procedures done? @ -No Diagnosis/symptom? @ -acute anxiety following life stressor Acute, or Chronic, or Acute on Chronic? @ -Acute Uncomplicated (without systemic symptoms) or Complicated (systemic symptoms)? @ -uncomplicated Side effects of treatment? @ -No Exacerbation, Progression, or Severe Exacerbation? @ -No Poses a threat to life or bodily function? How? (Chest pain, [place], [place], pneumonia, PE, COPD, DKA, ARF, appy, cholecystitis, CVA, Diverticulitis, Homicidal, Suicidal, threat to staff... and all critical care pts) @ -No Disposition Clinical Impression: Anxiety as acute reaction to exceptional stress Disposition: HOME SELF-CARE Condition: Good Instructions (If sedation given, give patient instructions): Anxiety (ED) Additional Instructions: Please return to the Emergency Department if symptoms worsen or any other concerns. Recommend you follow-up as scheduled with [facility] for further evaluation. Is patient prescribed a controlled substance at d/c from ED?: No Referrals: Chandana Aparicio MD [Primary Care Provider] - 1-2 days Time of Disposition: 21:47
[2024-06-28 21:55] VITALS: BP 128/70; PULSE 84; RESP 18; TEMP 98.3
== END 2024-06-28 22:04 | disposition home or self-care (01) ==
LOC: EC 18:53
DX: F43.0 Acute stress reaction (principal); F41.1 Generalized anxiety disorder; Z87.891 Personal history of nicotine dependence; Z88.1 Allergy status to other antibiotic agents; Z88.2 Allergy status to sulfonamides
CPT/HCPCS: 82075; 99284

== ENCOUNTER → 2025-02-22 | Outpatient (CLI) | payer OTHER ==
[2025-02-22 19:21] LABS: Basophils # (A) 0.04 X 10*3/uL (0.00-0.10); Basophils % (A) 0.8 %; Eosinophils % (A) 1.9 %; HCT 41.5 % (37.2-46.3); HGB 13.2 g/dL (12.0-15.0); Lymphocytes # (A) 1.37 X 10*3/uL (0.90-5.00); Lymphocytes % (A) 26.6 %; MCH 30.2 pg (27.0-32.0); MCHC 31.8 g/dL (32.0-37.0); Mean Platelet Volume 11.9 FL (9.5-12.2); Monocytes % (A) 7.8 %; NRBC Per 100 WBC 0 X 10*3/uL (0.00-0.01); Neutrophils # (A) 3.24 X 10*3/uL (1.80-7.70); Neutrophils % (A) 62.7 %; Platelet Count 206 X 10*3/uL (140-440); RBC 4.37 X 10*6/uL (4.10-5.20); RDW 11.9 % (11.5-14.5); WBC 5.16 X 10*3/uL (4.50-10.00)
[2025-02-22 19:29] LABS: ALT 18 U/L (8-44); AST 20 U/L (13-35); Albumin 4.5 g/dL (3.8-4.9); Albumin/Globulin Ratio 2.05 Ratio (1.60-3.17); Alkaline Phosphatase 66 U/L (41-126); BUN/Creat Ratio 12.78 Ratio (12.00-20.00); Blood Urea Nitrogen 11.5 mg/dL (9.0-27.0); Calcium 8.8 mg/dL (8.7-10.3); Carbon Dioxide 23.1 mmol/L (21.6-31.8); Chloride 106 mmol/L (96-109); Globulin 2.2 g/dL (1.6-3.3); Glucose 89 mg/dL (70-110); Potassium 4.2 mmol/L (3.5-5.5); Sodium 140 mmol/L (135-145); Total Bilirubin 0.5 mg/dL (0.3-1.2); Total Protein 6.7 g/dL (6.2-8.2)
== END | disposition home or self-care (01) ==
LOC: LABWHC1 15:42
PROVIDERS: ATTEND Physician Assistant
DX: L40.0 Psoriasis vulgaris (principal)
CPT/HCPCS: 36415; 80053; 85025; 86480